=== PATIENT | female | born 1935 | race Caucasian/White ===

== ENCOUNTER 2018-03-17 19:28 | Inpatient (IN) | payer MEDICARE, OTHER ==
[~2018-03-17] VITALS: Ht 160 cm; Wt 66.5 kg
[2018-03-17 20:32] LABS: BASOPHILS % 0.5 % (0.0-1.0); EOSINOPHILS # (AUTO) 0.1 (0.0-0.4); EOSINOPHILS % 1.7 % (0.0-6.0); HEMATOCRIT 34.1 % (34.2-44.1); HEMOGLOBIN 12.2 g/dL (12.0-16.0); LYMPHOCYTES # (AUTO) 1.8 (1.0-3.2); LYMPHOCYTES % 23.1 % (18.0-39.1); MEAN CORPUSCULAR HEMOGLOBIN 31.5 pg (28-32); MEAN CORPUSCULAR HGB CONC 35.8 g/dL (31-35); MEAN CORPUSCULAR VOLUME 88.1 fL (81-99); NEUTROPHILS # (AUTO) 3.9 (2.1-6.9); NEUTROPHILS % 48.9 % (38.7-80.0); RED BLOOD COUNT 3.87 x10e6/uL (3.6-5.1); RED CELL DISTRIBUTION WIDTH 13.1 % (11.7-14.4)
[2018-03-17 20:34] LABS: PLATELET COUNT 23 x10e3/uL (140-360)
[2018-03-17 20:40] LABS: INR 1.05; PROTHROMBIN TIME 12.9 seconds (11.9-14.5)
[2018-03-17 20:41] LABS: PARTIAL THROMBOPLASTIN TIME 29.9 seconds (23.8-35.5)
[2018-03-17 20:47] LABS: ALBUMIN 4.4 g/dL (3.5-5.0); ALBUMIN/GLOBULIN RATIO 1.1 (0.8-2.0); ANION GAP 12.7 mmol/L (8-16); CALCIUM 9.6 mg/dL (8.4-10.2); CREATININE, SERUM 0.89 mg/dL (0.57-1.11); POTASSIUM 3.7 mmol/L (3.5-5.1)
[2018-03-17 20:53] LABS: CREATINE KINASE MB 3.1 ng/mL (0-5.0)
--- NOTE | 2018-03-17 21:03 | Diagnostic Imaging Report ---
EXAMINATION: CHEST 2 VIEWS 03/17/2018 8:11 PM COMPARISON: None INDICATION: Anemia DISCUSSION: LINES: None. LUNGS: Nonspecific bibasilar opacities. PLEURA: No pleural effusion or pneumothorax. HEART AND MEDIASTINUM: Heart size is at the upper limits of normal. Mild ectasia of the thoracic aorta with a through sclerotic calcification. BONES AND SOFT TISSUES: Degenerative changes of the shoulders.. The soft tissues are normal. IMPRESSION: Nonspecific bibasilar opacities may represent infection or atelectasis. Follow-up radiograph may be helpful to determine chronicity. Moi Colon MD Signed by: Dr. Moi Colon M.D. on 03/17/2018 8:59 PM
[2018-03-17 21:24] LABS: HYPOCHROMASIA SLIGHT; LYMPHOCYTES % (MANUAL) 22 % (19-48); MONOCYTES % (MANUAL) 29 % (3.4-9.0); NEUTROPHILS % (MANUAL) 49 % (40-74); PLATELET ESTIMATE MARKEDLY DECREASED; PLATELET MORPHOLOGY COMMENT FEW GIANT; RBC MORPHOLOGY COMMENT NORMAL
[2018-03-17] MEDS ORDERED: SODIUM CHLORIDE FLUSH 10 ML SYR INJ PRN (21:30)
--- NOTE | 2018-03-17 23:32 | Diagnostic Imaging Report ---
EXAM: CT ABDOMEN/PELVIS W DATE: 03/17/2018 9:18 PM INDICATION: Splenomegaly COMPARISON: None TECHNIQUE: The abdomen and pelvis were scanned using a multidetector helical scanner. Coronal and sagittal reformations were obtained. Routine protocol performed. IV Contrast: 100 ml Isovue 300/370 FINDINGS: LOWER THORAX: Cardiomegaly with coronary artery, aortic valve and aortic calcification. Tortuous and/or ectatic incompletely visualized ascending thoracic aorta. Bibasilar nonspecific reticular opacities may reflect fibrotic changes/scarring. Prominent subcarinal and periaortic nodes measuring up to 1 cm short axis. LIVER/BILIARY: No masses. No ductal dilatation. GALLBLADDER: Unremarkable SPLEEN: Unremarkable PANCREAS: Unremarkable ADRENALS: No nodules KIDNEYS: Atrophic right kidney compared to the left. No masses or hydronephrosis. GI TRACT: No wall thickening or evidence of obstruction. Diverticulosis. Normal appendix. VESSELS: Severe atherosclerotic calcifications PERITONEUM/RETROPERITONEUM: No free air or fluid LYMPH NODES: No lymphadenopathy REPRODUCTIVE ORGANS/BLADDER: Hysterectomy. Unremarkable bladder SOFT TISSUES: Unremarkable BONES: Multilevel degenerative changes. Fusion at L4-5. IMPRESSION: No acute abnormality. Signed by: Dr Kay Giang MD on 03/17/2018 11:29 PM
[2018-03-18] VITALS (7 sets, daily range): BP systolic 156–177; BP diastolic 73–90
--- OUTSIDE RECORDS SUMMARY | 2018-03-18 00:32 | XMS REPORT ---
Author [facility] Address Unknown Phone Unavailable Care Team Providers Care Structural Manager Name Role Phone NAEEM BREWER Unavailable Unavailable Problems This patient has no known problems. Allergies, Adverse Reactions, Alerts This patient has no known allergies or adverse reactions. Medications This patient has no known medications. Results Test Description Test Time Test Comments Text Results Atomic Results Result Comments CT ABDOMEN/PELVIS W [place] [address] Patient Name: GEORGIE HOLT MR #: [id number] : 1935 Age/Sex: 82/F Req # : [id number] [facility] Physician: Ordered by: NAEEM BREWER MD Report #: [id number] Location: ER Room/Bed: Procedure: [id number] CT/CT ABDOMEN/PELVIS W Exam Date: 03/17/18 Exam Time: 2230 REPORT STATUS: Signed EXAM: CT ABDOMEN/PELVIS W DATE : 03/17/2018 9:18 PM INDICATION: Splenomegaly COMPARISON: None TECHNIQUE: The abdomen and pelvis were scanned using a multidetector helical scanner. Coronal and sagittal reformations were obtained. Routine protocol performed. IV Contrast: 100 ml Isovue 300/370 FINDINGS: LOWER THORAX: Cardiomegaly with coronary artery, aortic valve and aortic calcification. Tortuous and/or ectatic incompletely visualized ascending thoracic aorta. Bibasilar nonspecific reticular opacities may reflect fibrotic changes/ scarring. Prominent subcarinal and periaortic nodes measuring up to 1 cm short axis. LIVER/BILIARY: No masses. No ductal dilatation. GALLBLADDER: Unremarkable SPLEEN: Unremarkable PANCREAS: Unremarkable ADRENALS: No nodules KIDNEYS: Atrophic right kidney compared to the left. No masses or hydronephrosis. GI TRACT: No wall thickening or evidence of obstruction. Diverticulosis. Normal appendix. VESSELS: Severe atherosclerotic calcifications PERITONEUM/RETROPERITONEUM: No free air or fluid LYMPH NODES: No lymphadenopathy REPRODUCTIVE ORGANS/BLADDER: Hysterectomy. Unremarkable bladder SOFT TISSUES: Unremarkable BONES: Multilevel degenerative changes. Fusion at L4-5. IMPRESSION: No acute abnormality. Signed by: Dr Frannie Giang MD on 03/17/2018 11:29 PM Dictated By: FRANNIE GIANG MD 28 Transcribed By: JNEIFER on 03/17/182328 COPY TO: NAEEM BREWER MD CHEST 2 VIEWS [place] [address] Patient Name: GEORGIE HOLT MR #: [id number] : 1935 Age/Sex: 82/F Req #: [id number] Adm Physician: Ordered by: NAEEM BREWER MD Report #: [id number] Location: ER Room/Bed: Procedure: [id number] DX/CHEST 2 VIEWS Exam Date: 03/17/18 Exam Time: 2029 REPORT STATUS: Signed EXAMINATION: CHEST 2 VIEWS 03/17/2018 8: 11 PM COMPARISON: None INDICATION: Anemia DISCUSSION: LINES: None. LUNGS: Nonspecific bibasilar opacities. PLEURA: No pleural effusion or pneumothorax. HEART AND MEDIASTINUM: Heart size is at the upper limits of normal. Mild ectasia of the thoracic aorta with a through sclerotic calcification. BONES AND SOFT TISSUES: Degenerative changes of the shoulders.. The soft tissues are normal. IMPRESSION: Nonspecific bibasilar opacities may represent infection or atelectasis. Follow-up radiograph may be helpful to determine chronicity. Gabriella Colon MD Signed by: Dr. Gabriella Colon M.D. on 03/17/2018 8:59 PM Dictated By: GABRIELLA COLON MD 58 Transcribed By: JENIFER on 03/17/182058 COPY TO: NAEEM BREWER MD
[2018-03-18] MEDS ORDERED: IOPAMIDOL 370 MG/ML 200 ML INFUS..BTL INJ ONE (02:54)
[2018-03-18] MEDS ORDERED: SODIUM CHLORIDE 0.9% 50ML 50 ML ONE (02:54)
[2018-03-18] MEDS: LOSARTAN POTASSIUM 100 MG TAB PO SCH (09:56)
[2018-03-18 12:20] LABS: BASOPHILS % 0.3 % (0.0-1.0); EOSINOPHILS # (AUTO) 0.1 (0.0-0.4); EOSINOPHILS % 1.8 % (0.0-6.0); HEMATOCRIT 34.7 % (34.2-44.1); HEMOGLOBIN 12.3 g/dL (12.0-16.0); LYMPHOCYTES # (AUTO) 1.7 (1.0-3.2); LYMPHOCYTES % 27.6 % (18.0-39.1); MEAN CORPUSCULAR HEMOGLOBIN 31.3 pg (28-32); MEAN CORPUSCULAR HGB CONC 35.4 g/dL (31-35); MEAN CORPUSCULAR VOLUME 88.3 fL (81-99); MONOCYTES # (AUTO) 1.5 (0.2-0.8); MONOCYTES % 24.4 % (4.4-11.3); NEUTROPHILS # (AUTO) 2.7 (2.1-6.9); NEUTROPHILS % 45.1 % (38.7-80.0); RED BLOOD COUNT 3.93 x10e6/uL (3.6-5.1); RED CELL DISTRIBUTION WIDTH 12.8 % (11.7-14.4)
[2018-03-18 12:23] LABS: PLATELET COUNT 16 x10e3/uL (140-360)
--- NOTE | 2018-03-18 14:40 | History and Physical ---
CHIEF COMPLAINT: Severe thrombocytopenia with porphyria on the leg. HPI: This is an 82-year-old female with past medical history of hypertension, dementia, hyperlipidemia, and mild to moderate thrombocytopenia. She was seen in my office with porphyria and leg rash. Did a blood test. CBC shows platelet count was 22,000. The patient was sent to [facility] ER yesterday. No active bleeding. No hematemesis. No melena. No hematuria. No severe bruise. Has only porphyria rash on the body. No chest pain. No shortness of breath. No cough. No diarrhea. No constipation. No burning urination. No backache. ALLERGIES: NO KNOWN DRUG ALLERGIES. PAST MEDICAL HISTORY 1. Hypertension. 2. Hyperlipidemia. 3. Dementia. 4. Thrombocytopenia. PAST SURGICAL HISTORY 1. History of back surgery. 2. Hysterectomy. SOCIAL HISTORY: The patient is a . Lives with her daughter. HABITS: Denies smoking. Denies alcohol use. MEDICATIONS: List not available. FAMILY HISTORY: Sister has CA of breast. REVIEW OF SYSTEMS : Denies burning on urination. No dysuria. HEENT: No diplopia. No blurring of vision. CARDIOPULMONARY: No chest pain. No shortness of breath. No cough. ALIMENTARY SYSTEM: No nausea or vomiting. MUSCULOSKELETAL: No joint pain. CENTRAL NERVOUS SYSTEM: No focal weakness. DERMATOLOGIC: Bilateral leg skin rash. PHYSICAL EXAMINATION GENERAL: This is an 82-year-old female who is alert and oriented times 3, in no gross distress. VITAL SIGNS: Temperature 97.7, pulse 81, respiratory rate 20, blood pressure 168/87. HEENT: Head is atraumatic and normocephalic. Pupils are bilaterally equally reactive to light. The extraocular movements are intact. NECK: Supple. No JVD. No carotid bruit. LUNGS: Clear to auscultation and percussion bilaterally. No added sound. HEART: S1 and S2. Regular rate and rhythm. No S3, S4 or murmur. ABDOMEN: Soft. Nontender. No guarding. No rigidity. EXTREMITIES: No pedal edema. Peripheral pulses present. VP CLIENT SERVICES: Grossly nonfocal. SKIN: Bilateral lower leg porphyric rash. LABS: CMV normal. CBC: Platelet count was 23,000, hemoglobin 12.2, hematocrit 34.1. PT and PTT are normal. Chest x-ray: Nonspecific basilar opacity may represent infection or atelectasis. CT of the abdomen and pelvis: No acute abnormalities. Fibrotic changes in the lower lungs. CT of the abdomen is normal. ASSESSMENT 1. Severe thrombocytopenia with porphyric rash on the legs. 2. Hypertension. 3. Dementia. 4. Hyperlipidemia. PLAN: CBC today. CBC and BMP in the morning. Follow bleeding precautions. Discussed with nursing care about fall and bleeding precautions. Hematology consult with Dr. Noriega. Continue home medicines Losartan 50 daily and clonidine p.r.n. for hypertension. Case discussed with the patient. Told condition and prognosis. Job#: [id number]
[2018-03-18] MEDS ORDERED: METHYLPREDNISOLONE SOD SUCC 40 MG/ML VIAL IV ONE (16:30)
[2018-03-18] MEDS ORDERED: METHYLPREDNISOLONE SOD SUCC 40 MG/ML VIAL IV SCH ×2 (17:00→22:00)
[2018-03-18] MEDS: CLONIDINE HCL 0.1 MG TAB PO PRN (22:08)
[2018-03-19] VITALS (7 sets, daily range): BP systolic 134–168; BP diastolic 63–73
[2018-03-19] MEDS: METHYLPREDNISOLONE SOD SUCC 40 MG/ML VIAL IV SCH ×3 (01:21→16:46)
[2018-03-19 06:01] LABS: HEMATOCRIT 31.9 % (34.2-44.1); HEMOGLOBIN 11.5 g/dL (12.0-16.0); LYMPHOCYTES # (AUTO) 0.8 (1.0-3.2); LYMPHOCYTES % 17.5 % (18.0-39.1); MEAN CORPUSCULAR HEMOGLOBIN 31.9 pg (28-32); MEAN CORPUSCULAR HGB CONC 36.1 g/dL (31-35); MEAN CORPUSCULAR VOLUME 88.4 fL (81-99); MONOCYTES % 0.9 % (4.4-11.3); NEUTROPHILS # (AUTO) 3.6 (2.1-6.9); NEUTROPHILS % 80.9 % (38.7-80.0); PLATELET COUNT 65 x10e3/uL (140-360); RED BLOOD COUNT 3.61 x10e6/uL (3.6-5.1); RED CELL DISTRIBUTION WIDTH 12.6 % (11.7-14.4)
[2018-03-19 06:24] LABS: ANION GAP 12.9 mmol/L (8-16); BLOOD UREA NITROGEN 21 mg/dL (7-26); BUN/CREATININE RATIO 24 (6-25); CALCIUM 9.3 mg/dL (8.4-10.2); CARBON DIOXIDE 24 mmol/L (22-29); CHLORIDE 105 mmol/L (98-107); CREATININE, SERUM 0.87 mg/dL (0.57-1.11); EST GLOMERULAR FILTRATION RATE > 60 ML/MIN (60-); GLUCOSE 168 mg/dL (74-118); POTASSIUM 3.9 mmol/L (3.5-5.1); SODIUM 138 mmol/L (136-145)
[2018-03-19] MEDS: LOSARTAN POTASSIUM 100 MG TAB PO SCH ×2 (09:29→16:46)
[2018-03-19] MEDS: FAMOTIDINE 20 MG TAB PO SCH (16:46)
[2018-03-20] VITALS: BP 133/56
[2018-03-20] MEDS: METHYLPREDNISOLONE SOD SUCC 40 MG/ML VIAL IV SCH ×3 (02:27→16:32)
[2018-03-20 04:00] VITALS: BP 175/72
[2018-03-20] MEDS: CLONIDINE HCL 0.1 MG TAB PO PRN (04:46)
[2018-03-20 06:15] LABS: BASOPHILS % 0.1 % (0.0-1.0); EOSINOPHILS % 0.1 % (0.0-6.0); HEMATOCRIT 30.9 % (34.2-44.1); HEMOGLOBIN 10.9 g/dL (12.0-16.0); LYMPHOCYTES # (AUTO) 0.9 (1.0-3.2); LYMPHOCYTES % 7.2 % (18.0-39.1); MEAN CORPUSCULAR HEMOGLOBIN 31.5 pg (28-32); MEAN CORPUSCULAR HGB CONC 35.3 g/dL (31-35); MEAN CORPUSCULAR VOLUME 89.3 fL (81-99); MONOCYTES # (AUTO) 1.2 (0.2-0.8); MONOCYTES % 9.6 % (4.4-11.3); NEUTROPHILS # (AUTO) 10.7 (2.1-6.9); PLATELET COUNT 57 x10e3/uL (140-360); RED BLOOD COUNT 3.46 x10e6/uL (3.6-5.1)
[2018-03-20 06:31] LABS: ANION GAP 12.5 mmol/L (8-16); BLOOD UREA NITROGEN 26 mg/dL (7-26); BUN/CREATININE RATIO 32 (6-25); CARBON DIOXIDE 24 mmol/L (22-29); CHLORIDE 109 mmol/L (98-107); CREATININE, SERUM 0.81 mg/dL (0.57-1.11); EST GLOMERULAR FILTRATION RATE > 60 ML/MIN (60-); GLUCOSE 120 mg/dL (74-118); POTASSIUM 3.5 mmol/L (3.5-5.1); SODIUM 142 mmol/L (136-145)
[2018-03-20] MEDS: FAMOTIDINE 20 MG TAB PO SCH ×2 (08:08→16:32)
[2018-03-20 09:00] VITALS: BP 120/56
[2018-03-20] MEDS: LOSARTAN POTASSIUM 100 MG TAB PO SCH ×2 (09:08→16:33)
[2018-03-20] MEDS: AMLODIPINE BESYLATE 5 MG TAB PO SCH (09:08)
[2018-03-20 10:10] VITALS: BP 120/56
--- NOTE | 2018-03-20 10:23 | Diagnostic Imaging Report ---
PROCEDURE:SHOULDER COMPLETE BILATERAL TECHNIQUE:Internal and external rotation AP views both shoulders INDICATION:Bilateral shoulder pain COMPARISON:None. FINDINGS: Bilateral glenohumeral joint space narrowing with marginal osteophytosis. Suspected bilateral intra-articular loose bodies. Regional skeleton intact. CONCLUSION: Severe bilateral shoulder osteoarthritis with intra-articular loose bodies suspected bilaterally. Dictated by: Pedro Millard M.D. on 03/20/2018 at 10:26 Electronically approved by: Pedro Millard M.D. on 03/20/2018 at 10:26
[2018-03-20 16:20] VITALS: BP 131/60
[2018-03-20] MEDS: LACTULOSE SYRUP 20 GM/30 ML UDC PO PRN (16:36)
[2018-03-20 20:00] VITALS: BP 154/60
[2018-03-21] VITALS: BP 138/63
[2018-03-21] MEDS: METHYLPREDNISOLONE SOD SUCC 40 MG/ML VIAL IV SCH ×2 (00:30→09:55)
[2018-03-21 04:00] VITALS: BP 158/59
[2018-03-21 07:39] LABS: EOSINOPHILS % 0.3 % (0.0-6.0); HEMATOCRIT 32.9 % (34.2-44.1); HEMOGLOBIN 11.5 g/dL (12.0-16.0); LYMPHOCYTES # (AUTO) 0.8 (1.0-3.2); LYMPHOCYTES % 8.5 % (18.0-39.1); MEAN CORPUSCULAR HEMOGLOBIN 31.7 pg (28-32); MEAN CORPUSCULAR VOLUME 90.6 fL (81-99); MONOCYTES # (AUTO) 0.2 (0.2-0.8); MONOCYTES % 2.3 % (4.4-11.3); NEUTROPHILS % 87.2 % (38.7-80.0); RED BLOOD COUNT 3.63 x10e6/uL (3.6-5.1); RED CELL DISTRIBUTION WIDTH 12.9 % (11.7-14.4)
[2018-03-21 07:47] LABS: PLATELET COUNT 49 x10e3/uL (140-360)
[2018-03-21 07:57] LABS: ALANINE AMINOTRANSFERASE 19 IU/L (0-55); ALBUMIN 3.8 g/dL (3.5-5.0); ALBUMIN/GLOBULIN RATIO 1.1 (0.8-2.0); ALKALINE PHOSPHATASE 56 IU/L (40-150); ANION GAP 13.9 mmol/L (8-16); BLOOD UREA NITROGEN 27 mg/dL (7-26); BUN/CREATININE RATIO 33 (6-25); CALCIUM 8.8 mg/dL (8.4-10.2); CARBON DIOXIDE 23 mmol/L (22-29); CHLORIDE 105 mmol/L (98-107); CREATININE, SERUM 0.81 mg/dL (0.57-1.11); EST GLOMERULAR FILTRATION RATE > 60 ML/MIN (60-); GLUCOSE 130 mg/dL (74-118); POTASSIUM 3.9 mmol/L (3.5-5.1); SODIUM 138 mmol/L (136-145)
[2018-03-21] MEDS: FAMOTIDINE 20 MG TAB PO SCH (08:00)
[2018-03-21] MEDS: LACTULOSE SYRUP 20 GM/30 ML UDC PO PRN (08:01)
[2018-03-21 09:20] VITALS: BP 149/65
[2018-03-21] MEDS: LOSARTAN POTASSIUM 100 MG TAB PO SCH (09:56)
[2018-03-21] MEDS: AMLODIPINE BESYLATE 5 MG TAB PO SCH (09:57)
--- NOTE | 2018-03-21 11:38 | Consultation ---
DATE OF CONSULTATION: March 18, 2018 CONSULTATION TO: Marcella Lund MD Ms. Dannielle Garcia is an 82-year-old white female who presented to the ER with platelets of 16,000. Subsequently referred to me for further evaluation and treatment. History of having been seen by Dr. Ren Lund in his office. The patient had multiple petechiae over both lower extremities as well as some in the roof of the soft palate. Subsequently referred to me for further evaluation and treatment. HISTORY OF PAST ILLNESS 1. History of hypertension. 2. History of dementia. SOCIAL HISTORY: Noncontributory. FAMILY HISTORY: Noncontributory. ALLERGIES: REPORTED NONE. MEDICATIONS: At this time consist of: 1. Sodium chloride. 2. Losartan. 3. Clonidine. REVIEW OF SYSTEMS HEENT: Normal. CARDIAC: History of hypertension. RESPIRATORY: Normal. GI: Normal. : Normal. MUSCULOSKELETAL: Normal. SKIN AND BREASTS: Normal. NEUROENDOCRINE: Essentially normal. PHYSICAL EXAMINATION GENERAL: Moderately built female, very alert, very cooperate. No palpable adenopathy. HEART: Within normal limits. LUNGS: Clear. BREASTS: Exam deferred at her request. HEENT: Roof of the mouth shows petechiae over the soft palate. No blisters seen over the tongue. ABDOMEN: Soft. There is no hepatosplenomegaly. RECTAL AND VAGINAL: Exams deferred. CENTRAL NERVOUS SYSTEM: Essentially normal. EXTREMITIES: Petechiae up to the knee joint. LABS: Sodium 136, potassium 3.7, chloride 100, CO2 27, BUN 20, creatinine 0.89, glucose 119. Hemoglobin 12.3, hematocrit 34.7, white count of 6200, platelets 16,000. INR 1.05. Bilirubin 1.1, SGOT 24, SGPT 20, alkaline phosphatase 77. IMPRESSION 1. Thrombocytopenia. 2. Hypertension. 3. History of dementia. 4. 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 PLAN, COMMENTS AND SUGGESTIONS: Since I do not have the baseline platelet count on her, since ITP is a little bit uncommon at this age, I presume that this is chronic ITP much more than acute ITP. However, it could still be an acute ITP. I am making the distinction since chronic ITP usually is unresponsive to steroids. However, I would still use steroids in her to keep the platelets above 20,000. I will confine myself to hematology. The patient was started on Solu-Medrol. The platelets have gone up to 49,000. Subsequently will be discharged on prednisone 50 mg a day. I will follow her along with Dr. Ren Lund until the platelets come up 100,000 when I will start weaning her down. Thank you very much for allowing me to participate in the management of this patient. Job#: [id number] cc:REN LUND MD
[2018-03-21 12:31] VITALS: BP 183/78
[2018-03-21] MEDS ORDERED: PREDNISONE20 MG PO (12:57)
== END 2018-03-21 13:09 | disposition home or self-care (01) | DRG 813 ==
LOC: ER 19:28 → ERHOLD 21:19 → MED/SURG2 03-18 00:48
PROVIDERS: ADMIT Internal Medicine; ATTEND Internal Medicine
PROC: 30233R1 Transfusion of Nonautologous Platelets into Peripheral Vein, Percutaneous Approach (ICD-10-PCS; principal; 2018-03-18)
DX: D69.6 Thrombocytopenia, unspecified (principal); E80.20 Unspecified porphyria; I10 Essential (primary) hypertension; F03.90 Unspecified dementia, unspecified severity, without behavioral disturbance, psychotic disturbance, mood disturbance, and anxiety; E78.5 Hyperlipidemia, unspecified
CPT/HCPCS: 36415; 71046; 74177; 80048; 80053; 82550; 82553; 84484; 85025; 85610; 85730; 86850; 86900; 93005; 99284; J2920; P9034; Q9967

== ENCOUNTER 2018-04-06 19:49 | Inpatient (IN) | payer MEDICARE ==
[~2018-04-06] VITALS: Ht 160 cm; Wt 66.2 kg
[~2018-04-06 19:49] MED LIST: PREDNISONE20 MG PO
[2018-04-06] MEDS ORDERED: CLONIDINE HCL 0.1 MG TAB PO ONE (20:30)
[2018-04-06 21:03] LABS: BASOPHILS % 0.2 % (0.0-1.0); EOSINOPHILS % 0.4 % (0.0-6.0); HEMATOCRIT 32.1 % (34.2-44.1); HEMOGLOBIN 11.5 g/dL (12.0-16.0); LYMPHOCYTES # (AUTO) 0.9 (1.0-3.2); LYMPHOCYTES % 8.4 % (18.0-39.1); MEAN CORPUSCULAR HEMOGLOBIN 31.9 pg (28-32); MEAN CORPUSCULAR HGB CONC 35.8 g/dL (31-35); MEAN CORPUSCULAR VOLUME 88.9 fL (81-99); MONOCYTES # (AUTO) 0.4 (0.2-0.8); MONOCYTES % 3.4 % (4.4-11.3); NEUTROPHILS # (AUTO) 8.6 (2.1-6.9); NEUTROPHILS % 82.1 % (38.7-80.0); RED BLOOD COUNT 3.61 x10e6/uL (3.6-5.1); RED CELL DISTRIBUTION WIDTH 13.4 % (11.7-14.4)
[2018-04-06 21:05] LABS: PLATELET COUNT 11 x10e3/uL (140-360)
[2018-04-06 21:10] LABS: INR 1.09; PROTHROMBIN TIME 13.3 seconds (11.9-14.5)
[2018-04-06 21:11] LABS: PARTIAL THROMBOPLASTIN TIME 24.7 seconds (23.8-35.5)
[2018-04-06 21:20] LABS: ALBUMIN 3.8 g/dL (3.5-5.0); ALBUMIN/GLOBULIN RATIO 1.1 (0.8-2.0); ANION GAP 13.6 mmol/L (8-16); CALCIUM 8.8 mg/dL (8.4-10.2); CREATININE, SERUM 1.12 mg/dL (0.57-1.11); POTASSIUM 4.6 mmol/L (3.5-5.1)
[2018-04-06 21:33] LABS: LYMPHOCYTES % (MANUAL) 9 % (19-48); MONOCYTES % (MANUAL) 6 % (3.4-9.0); NEUTROPHILS % (MANUAL) 85 % (40-74)
[2018-04-06 21:34] LABS: HYPOCHROMASIA SLIGHT; PLATELET ESTIMATE MARKEDLY DECREASED; PLATELET MORPHOLOGY COMMENT NORMAL; RBC MORPHOLOGY COMMENT NORMAL
[2018-04-06] MEDS ORDERED: ONDANSETRON HCL INJ 2 MG/ML VIAL IV PRN (21:45)
[2018-04-06] MEDS: METHYLPREDNISOLONE SOD SUCC 125 MG/2ML VIAL IV SCH (22:36)
[2018-04-06] MEDS ORDERED: PANTOPRAZOLE SO40 MG PO (22:48)
[2018-04-06] MEDS ORDERED: LEVOTHYROXINE50 MCG PO (22:48)
[2018-04-06] MEDS ORDERED: LOSARTAN POTASS50 MG PO (22:48)
[2018-04-06] MEDS ORDERED: AMLODIPINE BESY10 MG PO (22:48)
[2018-04-06] MEDS ORDERED: ATORVASTATIN CA40 MG PO (22:48)
[2018-04-06] MEDS: HYDRALAZINE HCL 20 MG/ML VIAL IV PRN (23:08)
[2018-04-07] VITALS (8 sets, daily range): BP systolic 129–201; BP diastolic 58–126
[2018-04-07] MEDS: METHYLPREDNISOLONE SOD SUCC 125 MG/2ML VIAL IV SCH ×4 (03:37→21:20)
[2018-04-07] MEDS ORDERED: CLONIDINE HCL 0.1 MG TAB PO PRN (08:15)
[2018-04-07] MEDS: LOSARTAN POTASSIUM 25 MG TAB PO SCH (08:32)
[2018-04-07] MEDS: AMLODIPINE BESYLATE 10 MG TAB PO SCH (08:32)
[2018-04-07] MEDS: PANTOPRAZOLE SOD 40 MG TABEC PO SCH (08:32)
[2018-04-07] MEDS ORDERED: LEVOTHYROXINE SODIUM 50 MCG TAB PO SCH (09:00)
--- NOTE | 2018-04-07 09:40 | History and Physical ---
CHIEF COMPLAINT: Severe thrombocytopenia and leg rash. HPI: This is an 82-year-old female with a past medical history of thrombocytopenia, hypertension, dementia, hyperlipidemia, was in her usual state of health until few days ago. She came to my office for routine checkup. The CBC count shows the platelet count was 17,000 on 2 occasions. Patient was sent to ER. In the ER, the platelet count had dropped to 11,000. Patient supposed to be on prednisone but was not taking regularly. No hematemesis, no melena, no hematuria. Has some mild purpuric rash on the leg. No abdominal pain, no nausea, no vomiting, no abdominal distention. No headache, no dizziness. No chest pain, no shortness of breath, no cough. PAST MEDICAL HISTORY 1. Hyperlipidemia. 2. Dementia. 3. Hypertension. 4. Thrombocytopenia, possibly from ITP. PAST SURGICAL HISTORY: Back surgery and hysterectomy. HABITS: Denies smoking. Denies alcohol use. SOCIAL HISTORY: The patient is a . Lives with her daughter. MEDICATIONS: List available on the chart. FAMILY HISTORY: Sister has CA of breast. REVIEW OF SYSTEMS HEENT: No diplopia. No blurring of vision. GENERAL: Has some fatigue and weakness. CARDIOPULMONARY: No chest pain. No shortness of breath. ALIMENTARY SYSTEM: No nausea or vomiting. No hematemesis. MUSCULOSKELETAL: Some joint pain. CENTRAL NERVOUS SYSTEM: No focal weakness. No seizure. GENITOURINARY: No dysuria. No hematuria. PHYSICAL EXAMINATION GENERAL: An 82-year-old female who is alert, mild confusion. VITAL SIGNS: Temperature is 96, pulse 61, respiratory rate 18, and blood pressure 158/59. HEENT: Head is atraumatic and normocephalic. Pupils are bilaterally equally reactive to light. Extraocular movements are intact. NECK: Supple. No JVD. No carotid bruit. LUNGS: Clear to auscultation and percussion bilaterally. No added sound. HEART: S1 and S2. Regular rate and rhythm. No S3, S4 or murmur. ABDOMEN: Soft. Nontender. No guarding. No rigidity. EXTREMITIES: No pedal edema. Peripheral pulses +1. TABLE CUT OFF SAW OPERATOR: Grossly nonfocal. SKIN: Bilateral leg skin has some purpuric rash. LABORATORY: White count 10.47, hemoglobin 11.5, hematocrit 32.1, and platelets 11,000. BUN 27, creatinine 1.12, and glucose 168. INR is normal. ASSESSMENT 1. 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 2. Dementia. 3. Hyperlipidemia. 4. Uncontrolled blood pressure. PLAN 1. Admit to medical floor. 2. Hematology consult with Dr. Noriega. 3. Solu-Medrol 60 IV q.6 h. 4. IV fluid normal saline 50 mL per hour. 5. Lab: Hemoglobin A1c, BMP, CBC tomorrow morning. Case discussed with patient. Case discussed with the nursing staff. Told condition and prognosis. Discharge Job#: [id number] CF
[2018-04-07 10:13] LABS: BASOPHILS % 0.2 % (0.0-1.0); EOSINOPHILS % 0.3 % (0.0-6.0); HEMATOCRIT 31.6 % (34.2-44.1); HEMOGLOBIN 11.3 g/dL (12.0-16.0); LYMPHOCYTES % 10.4 % (18.0-39.1); MEAN CORPUSCULAR HEMOGLOBIN 31.8 pg (28-32); MEAN CORPUSCULAR HGB CONC 35.8 g/dL (31-35); MONOCYTES # (AUTO) 0.3 (0.2-0.8); NEUTROPHILS # (AUTO) 7.9 (2.1-6.9); NEUTROPHILS % 81.2 % (38.7-80.0); RED BLOOD COUNT 3.55 x10e6/uL (3.6-5.1); RED CELL DISTRIBUTION WIDTH 13.2 % (11.7-14.4)
[2018-04-07 10:16] LABS: PLATELET COUNT 10 x10e3/uL (140-360)
[2018-04-07 11:38] LABS: BAND NEUTROPHILS % (MANUAL) 1 %; LYMPHOCYTES % (MANUAL) 13 % (19-48); MONOCYTES % (MANUAL) 1 % (3.4-9.0); MYELOCYTES % (MANUAL) 1 % (0-0); NEUTROPHILS % (MANUAL) 84 % (40-74)
[2018-04-07 11:42] LABS: PLATELET ESTIMATE MARKEDLY DECREASED; PLATELET MORPHOLOGY COMMENT NORMAL; RBC MORPHOLOGY COMMENT NORMAL
[2018-04-07] MEDS: DANAZOL 100 MG CAP PO SCH ×3 (12:22→21:20)
[2018-04-07] MEDS: HYDRALAZINE HCL 20 MG/ML VIAL IV PRN (16:10)
[2018-04-07] MEDS: SODIUM CHLORIDE 0.9% 1000ML 1,000 ML IV SCH (18:08)
[2018-04-07] MEDS: MELATONIN 3 MG TAB PO SCH (21:20)
[2018-04-08] VITALS (8 sets, daily range): BP systolic 123–173; BP diastolic 57–74
[2018-04-08] MEDS: METHYLPREDNISOLONE SOD SUCC 125 MG/2ML VIAL IV SCH (05:45)
[2018-04-08] MEDS: HYDRALAZINE HCL 20 MG/ML VIAL IV PRN (05:45)
[2018-04-08] MEDS: LEVOTHYROXINE SODIUM 50 MCG TAB PO SCH (05:45)
[2018-04-08 06:26] LABS: BASOPHILS % 0.2 % (0.0-1.0); EOSINOPHILS % 0.2 % (0.0-6.0); HEMOGLOBIN 11.3 g/dL (12.0-16.0); LYMPHOCYTES # (AUTO) 0.9 (1.0-3.2); LYMPHOCYTES % 7.3 % (18.0-39.1); MEAN CORPUSCULAR HEMOGLOBIN 32.1 pg (28-32); MEAN CORPUSCULAR HGB CONC 36.5 g/dL (31-35); MEAN CORPUSCULAR VOLUME 88.1 fL (81-99); MONOCYTES # (AUTO) 0.6 (0.2-0.8); MONOCYTES % 4.8 % (4.4-11.3); NEUTROPHILS # (AUTO) 10.1 (2.1-6.9); NEUTROPHILS % 83.1 % (38.7-80.0); RED BLOOD COUNT 3.52 x10e6/uL (3.6-5.1); RED CELL DISTRIBUTION WIDTH 13.5 % (11.7-14.4)
[2018-04-08 06:27] LABS: PLATELET COUNT 14 x10e3/uL (140-360)
[2018-04-08 06:45] LABS: CALCIUM 8.7 mg/dL (8.4-10.2); CREATININE, SERUM 1.05 mg/dL (0.57-1.11)
[2018-04-08 06:58] LABS: ANION GAP 13.4 mmol/L (8-16)
[2018-04-08 07:05] LABS: POTASSIUM 3.4 mmol/L (3.5-5.1)
[2018-04-08] MEDS: LOSARTAN POTASSIUM 25 MG TAB PO SCH (08:26)
[2018-04-08] MEDS: AMLODIPINE BESYLATE 10 MG TAB PO SCH (08:26)
[2018-04-08] MEDS: DANAZOL 100 MG CAP PO SCH ×4 (08:26→20:34)
[2018-04-08] MEDS: METHYLPREDNISOLONE SOD SUCC 40 MG/ML VIAL IV SCH ×3 (08:27→20:34)
[2018-04-08] MEDS: PANTOPRAZOLE SOD 40 MG TABEC PO SCH (08:27)
[2018-04-08] MEDS ORDERED: POTASSIUM CHLORIDE 20 MEQ TAB CR PO ONE (15:00)
[2018-04-08] MEDS: SODIUM CHLORIDE 0.9% 1000ML 1,000 ML IV SCH (17:06)
[2018-04-08] MEDS: MELATONIN 3 MG TAB PO SCH (20:34)
[2018-04-09] VITALS (9 sets, daily range): BP systolic 128–146; BP diastolic 61–69
[2018-04-09] MEDS: METHYLPREDNISOLONE SOD SUCC 40 MG/ML VIAL IV SCH ×4 (04:50→21:58)
[2018-04-09] MEDS: LEVOTHYROXINE SODIUM 50 MCG TAB PO SCH (05:40)
[2018-04-09] MEDS: SODIUM CHLORIDE 0.9% 1000ML 1,000 ML IV SCH ×2 (05:40→18:03)
[2018-04-09 07:55] LABS: ALBUMIN 3.2 g/dL (3.5-5.0); ALBUMIN/GLOBULIN RATIO 1.1 (0.8-2.0); ANION GAP 10.7 mmol/L (8-16); CALCIUM 8.3 mg/dL (8.4-10.2); CREATININE, SERUM 0.93 mg/dL (0.57-1.11); POTASSIUM 3.7 mmol/L (3.5-5.1)
[2018-04-09] MEDS: DANAZOL 100 MG CAP PO SCH ×4 (08:38→21:08)
[2018-04-09] MEDS: LOSARTAN POTASSIUM 25 MG TAB PO SCH (08:38)
[2018-04-09] MEDS: PANTOPRAZOLE SOD 40 MG TABEC PO SCH (08:39)
[2018-04-09] MEDS: AMLODIPINE BESYLATE 10 MG TAB PO SCH (08:39)
[2018-04-09] MEDS: MELATONIN 3 MG TAB PO SCH (21:08)
[2018-04-09] MEDS: MIRTAZAPINE 15 MG TAB PO SCH (21:09)
[2018-04-10] VITALS (7 sets, daily range): BP systolic 128–162; BP diastolic 60–78
[2018-04-10] MEDS: SODIUM CHLORIDE 0.9% 1000ML 1,000 ML IV SCH (05:06)
[2018-04-10] MEDS: LEVOTHYROXINE SODIUM 50 MCG TAB PO SCH (05:06)
[2018-04-10] MEDS: METHYLPREDNISOLONE SOD SUCC 40 MG/ML VIAL IV SCH ×3 (05:06→15:53)
[2018-04-10 06:23] LABS: BASOPHILS % 0.4 % (0.0-1.0); EOSINOPHILS % 0.3 % (0.0-6.0); HEMATOCRIT 31.8 % (34.2-44.1); HEMOGLOBIN 11.3 g/dL (12.0-16.0); LYMPHOCYTES # (AUTO) 0.5 (1.0-3.2); LYMPHOCYTES % 4.7 % (18.0-39.1); MEAN CORPUSCULAR HEMOGLOBIN 31.8 pg (28-32); MEAN CORPUSCULAR HGB CONC 35.5 g/dL (31-35); MEAN CORPUSCULAR VOLUME 89.6 fL (81-99); MONOCYTES # (AUTO) 0.8 (0.2-0.8); MONOCYTES % 6.7 % (4.4-11.3); NEUTROPHILS # (AUTO) 9.2 (2.1-6.9); NEUTROPHILS % 81.8 % (38.7-80.0); RED BLOOD COUNT 3.55 x10e6/uL (3.6-5.1); RED CELL DISTRIBUTION WIDTH 13.5 % (11.7-14.4)
[2018-04-10 06:32] LABS: PLATELET COUNT 7 x10e3/uL (140-360)
[2018-04-10 06:42] LABS: ANION GAP 9.9 mmol/L (8-16); CREATININE, SERUM 0.93 mg/dL (0.57-1.11); POTASSIUM 3.9 mmol/L (3.5-5.1)
[2018-04-10 07:12] LABS: LYMPHOCYTES % (MANUAL) 15 % (19-48); METAMYELOCYTES % (MANUAL) 1 % (0-0); MONOCYTES % (MANUAL) 2 % (3.4-9.0); NEUTROPHILS % (MANUAL) 82 % (40-74)
[2018-04-10 07:13] LABS: ANISOCYTOSIS SLIGHT; PLATELET ESTIMATE MARKEDLY DECREASED; RBC MORPHOLOGY COMMENT ABNORMAL
[2018-04-10 07:14] LABS: PLATELET MORPHOLOGY COMMENT FEW LARGE
[2018-04-10] MEDS: AMLODIPINE BESYLATE 10 MG TAB PO SCH (08:50)
[2018-04-10] MEDS: LOSARTAN POTASSIUM 25 MG TAB PO SCH (08:50)
[2018-04-10] MEDS: DANAZOL 100 MG CAP PO SCH ×4 (08:50→21:14)
[2018-04-10] MEDS: PANTOPRAZOLE SOD 40 MG TABEC PO SCH (08:50)
[2018-04-10] MEDS ORDERED: IMMUNE GLOBULIN 10%,10GM/100ML 300 ML IV SCH (19:30)
[2018-04-10] MEDS: MIRTAZAPINE 15 MG TAB PO SCH (21:14)
[2018-04-10] MEDS: MELATONIN 3 MG TAB PO SCH (21:14)
[2018-04-10] MEDS ORDERED: IMMUNE GLOBULIN IV SCH (21:30)
[2018-04-10] MEDS ORDERED: IMMU GLOBULIN,GAMMA (IGG) 200 ML IV SCH (21:30)
[2018-04-11] VITALS (9 sets, daily range): BP systolic 136–175; BP diastolic 61–78
[2018-04-11] MEDS: SODIUM CHLORIDE 0.9% 1000ML 1,000 ML IV SCH ×2 (04:13→09:41)
[2018-04-11] MEDS: LEVOTHYROXINE SODIUM 50 MCG TAB PO SCH (05:17)
[2018-04-11] MEDS ORDERED: IMMUNE GLOBULIN IV SCH (05:30)
[2018-04-11 06:15] LABS: BASOPHILS % 0.3 % (0.0-1.0); EOSINOPHILS % 0.2 % (0.0-6.0); HEMATOCRIT 31.7 % (34.2-44.1); HEMOGLOBIN 11.2 g/dL (12.0-16.0); LYMPHOCYTES # (AUTO) 0.5 (1.0-3.2); LYMPHOCYTES % 4.6 % (18.0-39.1); MEAN CORPUSCULAR HEMOGLOBIN 31.8 pg (28-32); MEAN CORPUSCULAR HGB CONC 35.3 g/dL (31-35); MEAN CORPUSCULAR VOLUME 90.1 fL (81-99); MONOCYTES # (AUTO) 1.3 (0.2-0.8); MONOCYTES % 11.5 % (4.4-11.3); NEUTROPHILS # (AUTO) 8.7 (2.1-6.9); NEUTROPHILS % 77.6 % (38.7-80.0); RED BLOOD COUNT 3.52 x10e6/uL (3.6-5.1); RED CELL DISTRIBUTION WIDTH 13.4 % (11.7-14.4)
[2018-04-11 06:25] LABS: PLATELET COUNT 14 x10e3/uL (140-360)
[2018-04-11 06:32] LABS: CREATININE, SERUM 1.07 mg/dL (0.57-1.11)
[2018-04-11 07:54] LABS: ANISOCYTOSIS SLIGHT; BAND NEUTROPHILS % (MANUAL) 3 %; LYMPHOCYTES % (MANUAL) 4 % (19-48); METAMYELOCYTES % (MANUAL) 1 % (0-0); MONOCYTES % (MANUAL) 9 % (3.4-9.0); MYELOCYTES % (MANUAL) 3 % (0-0); NEUTROPHILS % (MANUAL) 78 % (40-74); PLATELET ESTIMATE MARKEDLY DECREASED; PLATELET MORPHOLOGY COMMENT NORMAL; RBC MORPHOLOGY COMMENT NORMAL
[2018-04-11] MEDS ORDERED: PREDNISONE 20 MG TAB PO SCH (09:00)
[2018-04-11] MEDS: PANTOPRAZOLE SOD 40 MG TABEC PO SCH (09:42)
[2018-04-11] MEDS: LOSARTAN POTASSIUM 25 MG TAB PO SCH (09:42)
[2018-04-11] MEDS: AMLODIPINE BESYLATE 10 MG TAB PO SCH (09:42)
[2018-04-11] MEDS: PREDNISONE 20 MG TAB PO SCH (09:42)
[2018-04-11] MEDS: DANAZOL 100 MG CAP PO SCH ×4 (09:42→21:00)
[2018-04-11] MEDS: MELATONIN 3 MG TAB PO SCH (21:00)
[2018-04-11] MEDS ORDERED: IMMUNE GLOBULIN 10%,10GM/100ML 300 ML IV SCH (21:30)
[2018-04-11] MEDS: MIRTAZAPINE 15 MG TAB PO SCH (22:02)
[2018-04-12 00:09] VITALS: BP 134/62
[2018-04-12 03:11] VITALS: BP 134/62
[2018-04-12 04:00] VITALS: BP 144/65
[2018-04-12] MEDS: LEVOTHYROXINE SODIUM 50 MCG TAB PO SCH (06:03)
[2018-04-12] MEDS: SODIUM CHLORIDE 0.9% 1000ML 1,000 ML IV SCH (06:04)
[2018-04-12 06:33] LABS: BASOPHILS % 0.4 % (0.0-1.0); EOSINOPHILS % 0.1 % (0.0-6.0); HEMATOCRIT 32.5 % (34.2-44.1); HEMOGLOBIN 11.2 g/dL (12.0-16.0); LYMPHOCYTES # (AUTO) 0.4 (1.0-3.2); LYMPHOCYTES % 4.4 % (18.0-39.1); MEAN CORPUSCULAR HEMOGLOBIN 31.4 pg (28-32); MEAN CORPUSCULAR HGB CONC 34.5 g/dL (31-35); MONOCYTES # (AUTO) 1.9 (0.2-0.8); MONOCYTES % 20.3 % (4.4-11.3); NEUTROPHILS # (AUTO) 6.6 (2.1-6.9); NEUTROPHILS % 69.7 % (38.7-80.0); RED BLOOD COUNT 3.57 x10e6/uL (3.6-5.1); RED CELL DISTRIBUTION WIDTH 13.3 % (11.7-14.4)
[2018-04-12 06:41] LABS: PLATELET COUNT 27 x10e3/uL (140-360)
[2018-04-12 06:50] LABS: ALBUMIN 2.7 g/dL (3.5-5.0); ALBUMIN/GLOBULIN RATIO 0.7 (0.8-2.0); CALCIUM 7.9 mg/dL (8.4-10.2); CREATININE, SERUM 0.98 mg/dL (0.57-1.11)
[2018-04-12 08:05] VITALS: BP 188/75
[2018-04-12 08:15] VITALS: BP 188/75
[2018-04-12] MEDS: LOSARTAN POTASSIUM 25 MG TAB PO SCH (08:17)
[2018-04-12] MEDS: DANAZOL 100 MG CAP PO SCH ×2 (08:17→13:00)
[2018-04-12] MEDS: AMLODIPINE BESYLATE 10 MG TAB PO SCH (08:18)
[2018-04-12] MEDS: PANTOPRAZOLE SOD 40 MG TABEC PO SCH (08:18)
[2018-04-12] MEDS: PREDNISONE 20 MG TAB PO SCH (08:18)
[2018-04-12 08:28] LABS: BAND NEUTROPHILS % (MANUAL) 4 %; LYMPHOCYTES % (MANUAL) 10 % (19-48); MONOCYTES % (MANUAL) 17 % (3.4-9.0); MYELOCYTES % (MANUAL) 1 % (0-0); NEUTROPHILS % (MANUAL) 67 % (40-74)
[2018-04-12 08:29] LABS: PLATELET ESTIMATE MARKEDLY DECREASED; PLATELET MORPHOLOGY COMMENT MODERATE LARGE
[2018-04-12 08:30] LABS: ANISOCYTOSIS SLIGHT; RBC MORPHOLOGY COMMENT NORMAL
--- NOTE | 2018-04-12 10:22 | Consultation ---
DATE OF CONSULTATION: April 07, 2018 Dannielle Garcia is an 82-year-old white female who presented to the ER with a platelet count of 11,000 and subsequently referred to me for further evaluation and treatment. HISTORY OF PAST ILLNESSES: History of ITP. This is the 2nd admission. The patient was discharged on prednisone. Something went wrong. The prednisone was not given by the pharmacy. Subsequently, the patient claims that she went to a trench digger helper, but the sister did not like the trench digger helper. Subsequently, there was no followup. Subsequently, lands in the ER. SOCIAL HISTORY: Noncontributory. FAMILY HISTORY: Noncontributory. ALLERGIES: REPORTED NONE. MEDICATIONS: At this time, ondansetron, methylprednisolone, hydralazine, amlodipine, clonidine, losartan, Synthroid. REVIEW OF SYSTEMS HEENT: Normal. CARDIAC: History of hypertension. RESPIRATORY: Normal. GI: Normal. : Normal. MUSCULOSKELETAL: Normal. SKIN AND BREASTS: Normal. NEUROENDOCRINE: History of hypothyroidism. PHYSICAL EXAMINATION GENERAL: A moderately built female with no palpable adenopathy. HEART: Within normal limits. LUNGS: Clear. ABDOMEN: Obese. There is no hepatosplenomegaly. RECTAL: Deferred. CENTRAL NERVOUS SYSTEM: Essentially normal. EXTREMITIES: Petechiae over both lower extremities. LABS: Shows a sodium of 137, potassium 4.6, chloride 74, CO2 24, BUN 27, creatinine 1.12. Hemoglobin of 11.5, white count 10,400, platelets of 11,000, hematocrit 32.1. INR 1.09. Bilirubin 0.6, SGOT 24, SGPT 39, alkaline phosphatase 70. IMPRESSION 1. Idiopathic thrombocytopenic purpura. 2. Hypertension. 2. Hypothyroidism. PLAN: Reinstitute steroids. Add Danocrin. Unfortunately, I am not on her insurance plan. I communicated with Dr. Ren Lund to obtain a trench digger helper for followup on her insurance plan. Thank you very much for allowing me to participate in the management of this patient. At the time of this dictation, the patient had to be given IV Ig. The patient is presently on 60 mg of prednisone and 200 mg 4 times a day of Danocrin. The platelets have come up to 27,000 with which she is very stable. Could be discharged on prednisone 60 mg and Danocrin 800 mg a day. Will follow up with a trench digger helper. Job#: [id number] RI cc:REN LUND MD
[2018-04-12 12:29] VITALS: BP 162/70
[2018-04-12] MEDS ORDERED: DANAZOL200 MG PO (14:22)
== END 2018-04-12 15:00 | disposition home or self-care (01) | DRG 813 ==
LOC: ER 19:49 → ERHOLD 21:38 → MED/SURG3 22:46 → OBSVTOIN 04-07 16:16
PROVIDERS: ADMIT Internal Medicine; ATTEND Internal Medicine
DX: D69.3 Immune thrombocytopenic purpura (principal); I10 Essential (primary) hypertension; D50.0 Iron deficiency anemia secondary to blood loss (chronic); F03.90 Unspecified dementia, unspecified severity, without behavioral disturbance, psychotic disturbance, mood disturbance, and anxiety; E78.5 Hyperlipidemia, unspecified; E03.9 Hypothyroidism, unspecified; E86.0 Dehydration
CPT/HCPCS: 36415; 80048; 80053; 83036; 85025; 85610; 85730; 96361; 99284; G0378; J0360; J1561; J2920; J2930; J7030

== ENCOUNTER 2018-06-06 10:53 | Inpatient (IN) | payer MEDICARE ==
[~2018-06-06] VITALS: Ht 160 cm; Wt 66.2 kg
[~2018-06-06 10:53] MED LIST changes: +AMLODIPINE BESY10 MG PO; +ATORVASTATIN CA40 MG PO; +DANAZOL200 MG PO; +LEVOTHYROXINE50 MCG PO; +LOSARTAN POTASS50 MG PO; +PANTOPRAZOLE SO40 MG PO
[2018-06-06] MEDS ORDERED: SODIUM CHLORIDE 0.9% 250ML 250 ML IV ONE (11:30)
[2018-06-06 11:35] LABS: BASOPHILS % 0.1 % (0.0-1.0); EOSINOPHILS # (AUTO) 0.1 (0.0-0.4); EOSINOPHILS % 0.9 % (0.0-6.0); HEMATOCRIT 27.1 % (34.2-44.1); LYMPHOCYTES # (AUTO) 1.2 (1.0-3.2); LYMPHOCYTES % 9.2 % (18.0-39.1); MEAN CORPUSCULAR HEMOGLOBIN 32.3 pg (28-32); MEAN CORPUSCULAR HGB CONC 33.2 g/dL (31-35); MEAN CORPUSCULAR VOLUME 97.1 fL (81-99); MONOCYTES # (AUTO) 4.4 (0.2-0.8); MONOCYTES % 32.7 % (4.4-11.3); NEUTROPHILS # (AUTO) 7.5 (2.1-6.9); NEUTROPHILS % 54.9 % (38.7-80.0); PLATELET COUNT 191 x10e3/uL (140-360); RED BLOOD COUNT 2.79 x10e6/uL (3.6-5.1); RED CELL DISTRIBUTION WIDTH 17.1 % (11.7-14.4)
[2018-06-06 11:45] LABS: INR 1.23; PROTHROMBIN TIME 14.6 seconds (11.9-14.5)
[2018-06-06 11:46] LABS: PARTIAL THROMBOPLASTIN TIME 27.7 seconds (23.8-35.5)
[2018-06-06 11:52] LABS: ALANINE AMINOTRANSFERASE 18 IU/L (0-55); ALBUMIN 2.6 g/dL (3.5-5.0); ALBUMIN/GLOBULIN RATIO 0.8 (0.8-2.0); ALKALINE PHOSPHATASE 39 IU/L (40-150); BLOOD UREA NITROGEN 21 mg/dL (7-26); BUN/CREATININE RATIO 25 (6-25); CALCIUM 8.4 mg/dL (8.4-10.2); CARBON DIOXIDE 22 mmol/L (22-29); CHLORIDE 109 mmol/L (98-107); CREATINE KINASE 35 IU/L (29-168); CREATININE, SERUM 0.85 mg/dL (0.57-1.11); EST GLOMERULAR FILTRATION RATE > 60 ML/MIN (60-); GLUCOSE 90 mg/dL (74-118); SODIUM 142 mmol/L (136-145)
[2018-06-06 11:57] LABS: B-TYPE NATRIURETIC PEPTIDE2 693.8 pg/mL (0-100)
[2018-06-06] MEDS ORDERED: FUROSEMIDE INJ 10 MG/ML 4 ML VIAL IV ONE (12:00)
--- NOTE | 2018-06-06 12:04 | Diagnostic Imaging Report ---
Examination: Single AP view of the chest. COMPARISON: CT abdomen and pelvis 03/17/2018. Chest 2 views 03/17/2018 INDICATION: Shortness of breath IMPRESSION: 1. Lines and Tubes: None 2. Lungs are well-inflated. Stable 3 mm nodular density projected within the posterior aspect of the right sixth and seventh ribs. Diffuse interstitial opacities extending from bilateral monica consistent with interstitial edema/fluid overload. No definite consolidation. 3. Cardiomediastinal silhouette is normal. Central pulmonary venous congestion. Calcified thoracic aorta. 4. No acute bony abnormalities. Signed by: Dr. Raúl Cantor M.D. on 06/06/2018 12:01 PM
[2018-06-06] MEDS ORDERED: FUROSEMIDE INJ 10 MG/ML 4 ML VIAL ONE (12:53)
[2018-06-06 13:17] LABS: BILIRUBIN,URINE NEGATIVE (NEGATIVE); CLARITY,URINE CLEAR (CLEAR); COLOR,URINE YELLOW (YELLOW); KETONES,URINE NEGATIVE (NEGATIVE); LEUKOCYTE ESTERASE ,URINE NEGATIVE (NEGATIVE); NITRITE,URINE NEGATIVE (NEGATIVE); PROTEIN,URINE DIPSTICK 2+ (NEGATIVE); URINE UROBILINOGEN 1 mg/dL (0.2 - 1)
[2018-06-06 13:27] LABS: BACTERIA,URINE FEW /HPF; EPITHELIAL CELLS,URINE RARE /LPF; WBC,URINE (MAN) 0-5 /HPF (0-5)
[2018-06-06] MEDS ORDERED: POTASSIUM CHLORIDE 10MEQ/100ML 10 MEQ in POTASSIUM CHLORIDE 10MEQ/100ML 100 ML IV ONE (15:05)
[2018-06-06] MEDS ORDERED: SODIUM CHLORIDE FLUSH 10 ML SYR INJ PRN (15:15)
[2018-06-06] MEDS: POTASSIUM CHLORIDE 10MEQ/100ML 100 ML IV SCH ×4 (16:00→23:48)
[2018-06-06] MEDS ORDERED: FUROSEMIDE INJ 10 MG/ML 4 ML VIAL IV SCH ×2 (17:00→21:45)
[2018-06-06] MEDS: PANTOPRAZOLE 40 MG 10ML VIAL IV SCH (17:37)
[2018-06-06 18:47] LABS: ANION GAP 19.3 mmol/L (8-16); CALCIUM 8.4 mg/dL (8.4-10.2); CREATININE, SERUM 1.11 mg/dL (0.57-1.11); POTASSIUM 3.3 mmol/L (3.5-5.1)
[2018-06-06 19:53] LABS: CREATINE KINASE MB 2.4 ng/mL (0-5.0)
[2018-06-06 21:50] VITALS: BP 128/69
[2018-06-06 22:00] VITALS: BP 128/69
[2018-06-06] MEDS ORDERED: SODIUM CHLORIDE 0.9% 250ML 250 ML ONE (22:06)
--- NOTE | 2018-06-06 22:50 | History and Physical ---
CHIEF COMPLAINT 1. Shortness of breath. 2. Cough. 3. Weakness. HPI: This is an 82-year-old female with past medical history of idiopathic thrombocytopenic purpura, dementia, hypertension, hypothyroidism, was in her usual state of health until 5-7 days ago, when she started developing some increasing shortness of breath, leg swelling. No nausea, no vomiting. Mild cough. No diarrhea, no abdominal pain, no constipation, no burning urination, no dysuria. No back pain, no seizures, no focal weakness. PAST MEDICAL HISTORY 1. Dementia. 2. Hyperlipidemia. 3. Hypertension. 4. Hypothyroidism. 5. Idiopathic thrombocytopenic purpura. PAST SURGICAL HISTORY: Back surgery and hysterectomy. SOCIAL HISTORY: Denies smoking, denies alcohol use, denies illicit drug use. MEDICATIONS: List attached. FAMILY HISTORY: Sister has CA of breast. SOCIAL HISTORY: Patient is . Lives with her daughter. REVIEW OF SYSTEMS GENERAL: Denies fatigue and weakness. HEENT: No diplopia. No blurring of vision. CARDIOPULMONARY: No chest pain. Has some shortness of breath and cough. ALIMENTARY SYSTEM: No nausea, no vomiting. GENITOURINARY: Denies dysuria or hematuria. MUSCULOSKELETAL: Mild joint pain. CENTRAL NERVOUS SYSTEM: No focal weakness, no seizure. PHYSICAL EXAM GENERAL: An 82-year-old female, who is alert, oriented times 1. VITAL SIGNS: Temperature 98.2, pulse 82, respiratory rate 18, blood pressure 110/74. HEENT: Atraumatic and normocephalic. Pupils are bilaterally equal to light. Extraocular movements are intact. NECK: Supple. No JVD, no carotid bruit. LUNGS: Air entry fair. Few rhonchi and wheezing bilaterally. HEART: S1 and S2. Regular rate and rhythm. No S3, S4 or murmur. ABDOMEN: Soft, nontender. No guarding, no rigidity. EXTREMITIES: +1 pedal edema. Peripheral pulses +1. LABORER CARPENTRY DOCK: Grossly nonfocal. ASSESSMENT 1. Acute new heart failure, possible systolic. Rule out myocardial infarction. 2. Increased white count, possible pneumonia versus steroid. 3. Hypertension. 4. Atherosclerotic heart disease. 5. Dementia. 6. Rectal bleeding, rule out gastrointestinal bleeding. 7. Hypothyroidism. PLAN 1. Admit to telemetry. 2. GI consult, Dr. Medina. 3. Cardiology consult, Dr. Albert. 4. Hematology consult, Dr. Downing. 5. Lasix 40 IV b.i.d. 6. KCl 20 p.o. b.i.d. 7. Levaquin 500 IV daily. 8. Continue prednisone 10 mg daily. 9. Continue all other home medicine. 10. Condition and prognosis explained to the patient and family. 11. Condition guarded. Job#: [id number] CQ
[2018-06-06] MEDS: LEVOFLOXACIN 500MG/D5W 100ML 100 ML IV SCH (22:55)
[2018-06-06 23:03] VITALS: BP 128/69
[2018-06-07] VITALS (7 sets, daily range): BP systolic 108–126; BP diastolic 40–73
[2018-06-07] MEDS: POTASSIUM CHLORIDE 10MEQ/100ML 100 ML IV SCH
[2018-06-07] MEDS: FUROSEMIDE INJ 10 MG/ML 4 ML VIAL IV SCH ×2 (00:47→13:43)
[2018-06-07] MEDS: ACETAMINOPHEN 325 MG TAB PO PRN ×2 (00:47→12:59)
[2018-06-07] MEDS ORDERED: POTASSIUM CHLORIDE 20 MEQ TAB CR PO STA (01:07)
[2018-06-07 02:50] LABS: CREATINE KINASE MB 1.8 ng/mL (0-5.0)
[2018-06-07 04:47] LABS: BASOPHILS % 0.2 % (0.0-1.0); EOSINOPHILS # (AUTO) 0.1 (0.0-0.4); EOSINOPHILS % 0.5 % (0.0-6.0); HEMOGLOBIN 8.6 g/dL (12.0-16.0); LYMPHOCYTES # (AUTO) 1.3 (1.0-3.2); LYMPHOCYTES % 10.8 % (18.0-39.1); MEAN CORPUSCULAR HEMOGLOBIN 31.7 pg (28-32); MEAN CORPUSCULAR HGB CONC 33.1 g/dL (31-35); MEAN CORPUSCULAR VOLUME 95.9 fL (81-99); MONOCYTES # (AUTO) 4.6 (0.2-0.8); MONOCYTES % 37.5 % (4.4-11.3); NEUTROPHILS # (AUTO) 6.1 (2.1-6.9); NEUTROPHILS % 49.1 % (38.7-80.0); PLATELET COUNT 175 x10e3/uL (140-360); RED BLOOD COUNT 2.71 x10e6/uL (3.6-5.1)
[2018-06-07 05:09] LABS: ANION GAP 18.1 mmol/L (8-16); CALCIUM 8.2 mg/dL (8.4-10.2); CREATININE, SERUM 1.17 mg/dL (0.57-1.11); POTASSIUM 3.1 mmol/L (3.5-5.1)
[2018-06-07] MEDS: LEVOTHYROXINE SODIUM 50 MCG TAB PO SCH (05:24)
--- NOTE | 2018-06-07 06:08 | Diagnostic Imaging Report ---
CHEST SINGLE (PORTABLE), 06/07/2018 7:00 AM Technique: CHEST SINGLE (PORTABLE) Comparison: Previous day Clinical history: Congestive heart failure. Findings: See Impression Impression: 1. Stable cardiomediastinal silhouette. Aortic calcifications. 2. Diffuse opacities, increased from prior, likely due to edema. 3. Small effusions. Signed by: Dr Kay Giang MD on 06/07/2018 6:04 AM
[2018-06-07 06:58] LABS: HYPOCHROMASIA MODERATE; LYMPHOCYTES % (MANUAL) 3 % (19-48); METAMYELOCYTES % (MANUAL) 1 % (0-0); MONOCYTES % (MANUAL) 25 % (3.4-9.0); MYELOCYTES % (MANUAL) 1 % (0-0); NEUTROPHILS % (MANUAL) 70 % (40-74)
[2018-06-07 06:59] LABS: ANISOCYTOSIS SLIG; PLATELET MORPHOLOGY COMMENT FEW LARGE; POLYCHROMASIA FEW; RBC MORPHOLOGY COMMENT NORMAL
--- NOTE | 2018-06-07 08:58 | Consultation ---
DATE OF CONSULTATION: June 06, 2018 CONSULTING PHYSICIAN: Dr. Vera River REASON FOR CONSULTATION: CHF and elevated troponin. HPI: This is an 82-year-old female that presented with difficulty with breathing. She started having increased shortness of breath with walking times 3 weeks. She also complained of bloody diarrhea times 2 to 3 weeks. She was sent over by the home health nurse due to low oxygen saturation. She has a history of thrombocytopenia and dementia. She denied any chest pain, any palpitations, any dizziness, or diaphoresis. Troponin was positive. EKG showed no ST abnormalities. BNP 693. PAST MEDICAL HISTORY: COPD, dementia, hyperlipidemia, hypertension, hypothyroidism, and thrombocytopenia. PAST SURGICAL HISTORY: Back surgery and hysterectomy. FAMILY HISTORY: Sister has history of breast cancer. SOCIAL HISTORY: No smoking, no drinking. MEDICATIONS: See med list. ALLERGIES: SHE IS NOT ALLERGIC TO ANY MEDICATION. REVIEW OF THE SYSTEMS: Negative except those mentioned above. PHYSICAL EXAMINATION: VITAL SIGNS: Temperature 98, heart rate 84, blood pressure 112/57, respiration 18, oxygen saturation 94% on 2 liters nasal cannula. GENERAL: She is awake, alert, and intermittently confused. HEENT: Mucous membranes moist. NECK: Supple. LUNGS: Bilaterally clear to auscultation. CARDIOVASCULAR: S1 and S2 present. ABDOMEN: Soft. NEUROLOGICAL: She is able to move upper and lower extremities. EXTREMITIES: Bilateral lower extremities with no edema. LABS: Sodium 142, potassium 3.1, chloride 104, CO2 23, BUN 21, creatinine 1.17, glucose 75. White blood cell 12.3, hemoglobin 8.6, hematocrit 26.0, platelet 175,000. PT 14.6, PTT 27.7, INR 1.23. IMPRESSION: 1. Congestive heart failure. 2. Non-ST elevation myocardial infarction. 3. Anemia. 4. Hypertension. 5. Hypothyroidism. 6. Thrombocytopenia. 7. History of dementia. 8. Hypokalemia. 9. History of bloody diarrhea. ASSESSMENT AND PLAN: Will go ahead and continue diuresis. Get an echocardiogram to assess the LV and the valve function. She has no complaint of chest pain. Troponin was elevated, but she refused any cardiac procedure. Will go ahead and continue statin and beta colleen. Due to the GI bleed possible, will go ahead and hold off on aspirin and Plavix. Potassium has been replaced. Further cardiac workup pending clinical course. Thank you for this consultation. Dictated by: Miriam Ledezma NP Job#: [id number]
[2018-06-07] MEDS ORDERED: PREDNISONE 20 MG TAB PO SCH (09:00)
[2018-06-07] MEDS ORDERED: NON-FORMULARY MEDICATION (Losartan Potassium 100 MG) PO SCH (09:00)
[2018-06-07] MEDS ORDERED: NON-FORMULARY MEDICATION (Atorvastatin Calcium 40 MG) PO SCH (09:00)
[2018-06-07] MEDS ORDERED: DANAZOL 200 MG PO SCH (09:00)
[2018-06-07] MEDS: PANTOPRAZOLE 40 MG 10ML VIAL IV SCH ×2 (09:01→17:38)
[2018-06-07] MEDS: POTASSIUM CHLORIDE 20 MEQ TAB CR PO SCH ×2 (09:01→17:37)
[2018-06-07] MEDS: AMLODIPINE BESYLATE 10 MG TAB PO SCH (09:02)
[2018-06-07] MEDS: DANAZOL 100 MG CAP PO SCH (09:02)
[2018-06-07] MEDS: PREDNISONE 10 MG TAB PO SCH (09:02)
[2018-06-07] MEDS: LOSARTAN POTASSIUM 100 MG TAB PO SCH (09:03)
[2018-06-07] MEDS ORDERED: ACETAMINOPHEN 325 MG TAB PO PRN (15:30)
[2018-06-07] MEDS ORDERED: POTASSIUM CHLORIDE 10 MEQ TABCR PO ONE (15:40)
[2018-06-07] MEDS: LEVOFLOXACIN 500MG/D5W 100ML 100 ML IV SCH (17:37)
[2018-06-07] MEDS: ATORVASTATIN 40 MG TAB PO SCH (20:52)
[2018-06-08] MEDS: FUROSEMIDE INJ 10 MG/ML 4 ML VIAL IV SCH ×2 (01:52→13:59)
[2018-06-08 04:35] VITALS: BP 127/52
[2018-06-08] MEDS: LEVOTHYROXINE SODIUM 50 MCG TAB PO SCH (05:18)
[2018-06-08 05:53] LABS: INR 1.31; PROTHROMBIN TIME 15.3 seconds (11.9-14.5)
[2018-06-08 05:54] LABS: PARTIAL THROMBOPLASTIN TIME 31.5 seconds (23.8-35.5)
[2018-06-08 05:56] LABS: BASOPHILS % 0.2 % (0.0-1.0); EOSINOPHILS % 0.1 % (0.0-6.0); HEMATOCRIT 25.8 % (34.2-44.1); HEMOGLOBIN 8.5 g/dL (12.0-16.0); LYMPHOCYTES # (AUTO) 1.4 (1.0-3.2); LYMPHOCYTES % 10.7 % (18.0-39.1); MEAN CORPUSCULAR HEMOGLOBIN 31.8 pg (28-32); MEAN CORPUSCULAR HGB CONC 32.9 g/dL (31-35); MEAN CORPUSCULAR VOLUME 96.6 fL (81-99); MONOCYTES % 30.9 % (4.4-11.3); NEUTROPHILS # (AUTO) 7.2 (2.1-6.9); PLATELET COUNT 194 x10e3/uL (140-360); RED BLOOD COUNT 2.67 x10e6/uL (3.6-5.1); RED CELL DISTRIBUTION WIDTH 17.3 % (11.7-14.4)
[2018-06-08 06:21] LABS: ALBUMIN 2.5 g/dL (3.5-5.0); ALBUMIN/GLOBULIN RATIO 0.7 (0.8-2.0); CALCIUM 8.6 mg/dL (8.4-10.2); CREATININE, SERUM 1.24 mg/dL (0.57-1.11)
[2018-06-08 07:29] LABS: BAND NEUTROPHILS % (MANUAL) 1 %; EOSINOPHILS % (MANUAL) 1 % (0-7); LYMPHOCYTES % (MANUAL) 12 % (19-48); METAMYELOCYTES % (MANUAL) 1 % (0-0); MONOCYTES % (MANUAL) 21 % (3.4-9.0); MYELOCYTES % (MANUAL) 1 % (0-0); NEUTROPHILS % (MANUAL) 63 % (40-74)
[2018-06-08 07:30] VITALS: BP 124/50
[2018-06-08 07:33] LABS: HYPOCHROMASIA MODERATE; PLATELET ESTIMATE ADEQUATE; POLYCHROMASIA FEW; RBC MORPHOLOGY COMMENT NORMAL; SMUDGE CELLS FEW
[2018-06-08 07:34] LABS: ANISOCYTOSIS MODERATE; PLATELET MORPHOLOGY COMMENT NORMAL; POIKILOCYTOSIS SLIGHT
[2018-06-08] MEDS: POTASSIUM CHLORIDE 20 MEQ TAB CR PO SCH ×2 (08:00→16:20)
[2018-06-08] MEDS: LOSARTAN POTASSIUM 100 MG TAB PO SCH (08:38)
[2018-06-08] MEDS: DANAZOL 100 MG CAP PO SCH (08:39)
[2018-06-08] MEDS: AMLODIPINE BESYLATE 10 MG TAB PO SCH (08:39)
[2018-06-08] MEDS: PREDNISONE 10 MG TAB PO SCH (08:39)
[2018-06-08] MEDS: PANTOPRAZOLE 40 MG 10ML VIAL IV SCH ×2 (08:39→16:20)
[2018-06-08 09:03] VITALS: BP 124/50
[2018-06-08 11:48] VITALS: BP 127/62
[2018-06-08 15:51] LABS: AMYLASE 45 U/L (25-125); LIPASE 55 U/L (8-78)
[2018-06-08] MEDS ORDERED: SODIUM CHLORIDE 0.9% 250ML 250 ML ONE (16:09)
[2018-06-08 16:20] VITALS: BP 117/52
[2018-06-08] MEDS: METRONIDAZOLE 500MG/NS 100ML 100 ML IV SCH ×2 (16:20→23:50)
[2018-06-08] MEDS: CEFEPIME HCL 1 GM VIAL IV SCH ×2 (16:20→20:58)
--- NOTE | 2018-06-08 17:12 | Consultation ---
DATE OF CONSULTATION: REASON FOR CONSULTATION: Cough, weakness, and shortness of breath. HISTORY OF PRESENT ILLNESS: This patient, who s a very pleasant 82-year-old white female, not a good source of information. She is forgetful. She does have underlying history of dementia, history of idiopathic thrombocytopenic purpura, hypothyroidism, and hypertension. Patient comes in with 5 days of shortness of breath, leg swelling bilateral. No nausea. No vomiting. The patient is not a good source of information as mentioned above and there is really no family for me to review with. The patient is here. I have reviewed her record. She has no complaints except she is weak. The patient was admitted with acute congestive heart failure, leukocytosis, concern about pneumonia. Patient was admitted. She was seen by cardiology, hematology and oncology, started on Levaquin. Infectious disease was consulted. PAST MEDICAL HISTORY 1. Dementia. 2. Hyperlipidemia. 3. Hypertension. 4. Hypothyroidism. 5. Idiopathic thrombocytopenic purpura. PAST SURGICAL HISTORY: Back surgery and hysterectomy. ALLERGIES: NKA. SOCIAL HISTORY: There is no smoking, drug abuse, or alcohol abuse. FAMILY HISTORY: Her sister had cancer. REVIEW OF SYSTEMS GENERAL: She is generally weak. HEENT: There is no headache, visual changes, or hearing changes. GI: There is no nausea, no vomiting. CARDIAC: There is no arrhythmia. NEURO: No seizure activity. SKIN: There is no rash. The patient was admitted. She was diagnosed with [id number] myocardial infarction. She was seen by cardiology. Her blood culture is negative for 48 hours. Her urine culture is negative for 24 hours. Her white count is 12.81, hemoglobin 8.5, hematocrit 25, and platelet 175. Sodium 140, potassium 4.0, and creatinine 1.24. PHYSICAL EXAMINATION GENERAL: She is alert, very pleasant, does not seem to be in acute distress, running fever up to 101.7. HEENT: She is normocephalic, not appear icteric. NECK: Supple. CHEST: Clear. COR: S1 and S2. There is no murmur. ABDOMEN: Soft. Bowel sounds present. No tenderness. EXTREMITIES: No edema. SKIN: There is no rash. IMPRESSION AND PLAN 1. Fever, leukocytosis, and weakness. The patient has dementia. It is very hard to tell. Concerned about the infection; however, the source is unclear. I would recommend to obtain CT of abdomen and pelvis and change her to Zosyn till we know what are we dealing with. 2. Recheck CBC. Recheck Chem panel. 3. Congestive heart failure, ST elevation myocardial infarction. We will follow with you. Job#: [id number] LPA
[2018-06-08] MEDS: LEVOFLOXACIN 500MG/D5W 100ML 100 ML IV SCH (17:33)
--- NOTE | 2018-06-08 19:21 | Diagnostic Imaging Report ---
EXAM: CT Abdomen and Pelvis WITH contrast INDICATION: Loose stool, shortness of breath, bloody diarrhea. Rule out infection. COMPARISON: None. TECHNIQUE: Abdomen and pelvis were scanned utilizing a multidetector helical scanner from the lung base to the pubic symphysis after administration of IV contrast. Coronal and sagittal reformations were obtained. Routine protocol is performed. IV CONTRAST: None. ORAL CONTRAST: None RADIATION DOSE: Total DLP: 319.74 mGy*cm Estimated effective dose: (DLP x 0.015 x size factor) mSv COMPLICATIONS: None FINDINGS: LINES and TUBES: A Walsh catheter has its tip in the bladder. LOWER THORAX: Diffuse groundglass opacities in lung bases. Trace left pleural effusion. Calcifications at the aortic root and of the mitral annulus. HEPATOBILIARY: No focal hepatic lesions. No biliary ductal dilation. GALLBLADDER: No radio-opaque stones or sludge. No wall thickening. SPLEEN: No splenomegaly. PANCREAS: No focal masses or ductal dilatation. ADRENALS: No adrenal nodules KIDNEYS/URETERS: The right kidney is smaller than the left. No hydronephrosis. No cystic or solid mass lesions. No stones. GI TRACT: No abnormal distention, wall thickening, or evidence of bowel obstruction. Numerous colonic diverticula without evidence of acute inflammation. There is solid stool in the colon. Appendix is normal. PELVIC ORGANS/BLADDER: The uterus is absent. The bladder is decompressed by Walsh catheter. LYMPH NODES: No lymphadenopathy. VESSELS: There is severe atherosclerotic disease in the aorta and major arterial branches. PERITONEUM / RETROPERITONEUM: No free air or fluid. BONES: Multilevel degenerative changes of the thoracic and lumbar spine. Moderate facet arthrosis affects the lower lumbar spine. SOFT TISSUES: Unremarkable. IMPRESSION: 1. Colonic diverticulosis. No evidence of acute diverticulitis. 2. Limited views of the lung bases reveal diffuse groundglass opacities, likely representing pulmonary edema. Moi Colon MD Signed by: Dr. Moi Colon M.D. on 06/08/2018 7:18 PM
[2018-06-08 20:00] VITALS: BP 114/55
[2018-06-08] MEDS: ATORVASTATIN 40 MG TAB PO SCH (20:58)
[2018-06-09 00:15] VITALS: BP 114/71
[2018-06-09] MEDS: FUROSEMIDE INJ 10 MG/ML 4 ML VIAL IV SCH (00:37)
[2018-06-09 05:41] LABS: BASOPHILS % 0.2 % (0.0-1.0); EOSINOPHILS # (AUTO) 0.1 (0.0-0.4); HEMATOCRIT 26.9 % (34.2-44.1); HEMOGLOBIN 8.6 g/dL (12.0-16.0); LYMPHOCYTES # (AUTO) 1.4 (1.0-3.2); LYMPHOCYTES % 11.5 % (18.0-39.1); MEAN CORPUSCULAR HEMOGLOBIN 31.7 pg (28-32); MEAN CORPUSCULAR VOLUME 99.3 fL (81-99); MONOCYTES # (AUTO) 3.9 (0.2-0.8); MONOCYTES % 32.5 % (4.4-11.3); NEUTROPHILS # (AUTO) 6.3 (2.1-6.9); NEUTROPHILS % 52.1 % (38.7-80.0); PLATELET COUNT 207 x10e3/uL (140-360); RED BLOOD COUNT 2.71 x10e6/uL (3.6-5.1); RED CELL DISTRIBUTION WIDTH 17.4 % (11.7-14.4)
[2018-06-09 06:09] LABS: ANION GAP 16.5 mmol/L (8-16); CALCIUM 8.5 mg/dL (8.4-10.2); CREATININE, SERUM 1.42 mg/dL (0.57-1.11); POTASSIUM 3.5 mmol/L (3.5-5.1)
[2018-06-09] MEDS: LEVOTHYROXINE SODIUM 50 MCG TAB PO SCH (06:26)
[2018-06-09] MEDS: CEFEPIME HCL 1 GM VIAL IV SCH ×3 (06:26→21:31)
[2018-06-09 07:45] VITALS: BP 109/61
[2018-06-09 08:08] VITALS: BP 109/61
[2018-06-09] MEDS: DANAZOL 100 MG CAP PO SCH (08:24)
[2018-06-09] MEDS: PREDNISONE 10 MG TAB PO SCH (08:24)
[2018-06-09] MEDS: PANTOPRAZOLE 40 MG 10ML VIAL IV SCH ×2 (08:24→18:30)
[2018-06-09] MEDS: METRONIDAZOLE 500MG/NS 100ML 100 ML IV SCH ×3 (08:25→23:48)
[2018-06-09] MEDS: LOSARTAN POTASSIUM 100 MG TAB PO SCH (08:26)
[2018-06-09] MEDS: AMLODIPINE BESYLATE 10 MG TAB PO SCH (08:26)
[2018-06-09] MEDS: POTASSIUM CHLORIDE 20 MEQ TAB CR PO SCH ×2 (08:27→08:41)
[2018-06-09] MEDS ORDERED: ACETAMINOPHEN 325 MG TAB PO PRN (08:30)
[2018-06-09] MEDS ORDERED: PREDNISONE 10 MG TAB PO SCH (09:00)
[2018-06-09 09:20] LABS: ANISOCYTOSIS SLIGHT; EOSINOPHILS % (MANUAL) 3 % (0-7); HYPOCHROMASIA SLIGHT; LYMPHOCYTES % (MANUAL) 8 % (19-48); MONOCYTES % (MANUAL) 20 % (3.4-9.0); NEUTROPHILS % (MANUAL) 69 % (40-74); NUCLEATED RED BLOOD CELLS 1
[2018-06-09 09:21] LABS: PLATELET ESTIMATE ADEQUATE; PLATELET MORPHOLOGY COMMENT FEW LARGE; POIKILOCYTOSIS SLIGHT; RBC MORPHOLOGY COMMENT NORMAL
[2018-06-09] MEDS: FUROSEMIDE 40 MG TAB PO SCH (15:01)
[2018-06-09 15:13] VITALS: BP 113/61
[2018-06-09] MEDS: LEVOFLOXACIN 500MG/D5W 100ML 100 ML IV SCH (18:30)
--- NOTE | 2018-06-09 19:33 | Diagnostic Imaging Report ---
Tagged-RBC GI Bleed Study Clinical information: 82-year-old female with bloody diarrhea on and off x 2-3 weeks. Discussion: The patient's own red blood cells were labeled with 25 mCi of technetium-99m pertechnetate using the in vitro method (UltraTag). Dynamic images of the abdomen were obtained through 60 minutes. Distribution of tracer activity appears physiologic throughout the abdomen. No abnormal accumulation of tracer is seen within the gastrointestinal lumen. Impression: No scan evidence of active gastrointestinal bleeding at this time. Signed by: Dr. Dilcia Whitehead M.D. on 06/09/2018 7:30 PM
[2018-06-09 20:00] VITALS: BP 118/55
[2018-06-09 20:38] VITALS: BP 118/55
[2018-06-09] MEDS: ATORVASTATIN 40 MG TAB PO SCH (21:00)
[2018-06-10] VITALS (7 sets, daily range): BP systolic 106–147; BP diastolic 56–63
[2018-06-10] MEDS: CEFEPIME HCL 1 GM VIAL IV SCH ×3 (05:25→21:11)
[2018-06-10] MEDS: LEVOTHYROXINE SODIUM 50 MCG TAB PO SCH (05:25)
[2018-06-10 05:43] LABS: BASOPHILS # (AUTO) 0.1 (0.0-0.1); BASOPHILS % 0.4 % (0.0-1.0); EOSINOPHILS # (AUTO) 0.1 (0.0-0.4); EOSINOPHILS % 0.6 % (0.0-6.0); HEMATOCRIT 27.4 % (34.2-44.1); HEMOGLOBIN 8.5 g/dL (12.0-16.0); LYMPHOCYTES # (AUTO) 1.8 (1.0-3.2); LYMPHOCYTES % 14.8 % (18.0-39.1); MEAN CORPUSCULAR HEMOGLOBIN 31.8 pg (28-32); MONOCYTES # (AUTO) 3.1 (0.2-0.8); MONOCYTES % 25.8 % (4.4-11.3); NEUTROPHILS # (AUTO) 6.5 (2.1-6.9); NEUTROPHILS % 54.4 % (38.7-80.0); PLATELET COUNT 183 x10e3/uL (140-360); RED BLOOD COUNT 2.67 x10e6/uL (3.6-5.1)
[2018-06-10 05:45] LABS: MEAN CORPUSCULAR VOLUME 102.6 fL (81-99)
[2018-06-10 06:05] LABS: ALBUMIN 2.3 g/dL (3.5-5.0); ALBUMIN/GLOBULIN RATIO 0.6 (0.8-2.0); CALCIUM 8.4 mg/dL (8.4-10.2); CREATININE, SERUM 1.24 mg/dL (0.57-1.11)
[2018-06-10 07:12] LABS: EOSINOPHILS % (MANUAL) 1 % (0-7); LYMPHOCYTES % (MANUAL) 15 % (19-48); METAMYELOCYTES % (MANUAL) 2 % (0-0); MONOCYTES % (MANUAL) 15 % (3.4-9.0); MYELOCYTES % (MANUAL) 1 % (0-0); NEUTROPHILS % (MANUAL) 66 % (40-74)
[2018-06-10 07:16] LABS: PLATELET ESTIMATE ADEQUATE; PLATELET MORPHOLOGY COMMENT NORMAL; RBC MORPHOLOGY COMMENT ABNORMAL
[2018-06-10 07:17] LABS: ANISOCYTOSIS SLIGHT; POIKILOCYTOSIS MODERATE
[2018-06-10 07:18] LABS: BURR CELLS MODERATE
[2018-06-10 07:19] LABS: ROULEAU FEW
[2018-06-10] MEDS: PANTOPRAZOLE 40 MG 10ML VIAL IV SCH ×2 (08:48→16:40)
[2018-06-10] MEDS: POTASSIUM CHLORIDE 20 MEQ TAB CR PO SCH (08:48)
[2018-06-10] MEDS: METRONIDAZOLE 500MG/NS 100ML 100 ML IV SCH ×2 (08:48→16:40)
[2018-06-10] MEDS: DANAZOL 100 MG CAP PO SCH (08:48)
[2018-06-10] MEDS: LOSARTAN POTASSIUM 100 MG TAB PO SCH (08:48)
[2018-06-10] MEDS: FUROSEMIDE 40 MG TAB PO SCH (08:48)
[2018-06-10] MEDS: AMLODIPINE BESYLATE 10 MG TAB PO SCH (08:48)
[2018-06-10] MEDS: PREDNISONE 10 MG TAB PO SCH (08:48)
[2018-06-10] MEDS: LEVOFLOXACIN 500MG/D5W 100ML 100 ML IV SCH (17:59)
[2018-06-10] MEDS: ZOLPIDEM TARTRATE 5 MG TAB PO PRN (21:11)
[2018-06-10] MEDS: ATORVASTATIN 40 MG TAB PO SCH (21:11)
[2018-06-11] VITALS (8 sets, daily range): BP systolic 103–137; BP diastolic 53–63
[2018-06-11] MEDS ORDERED: SODIUM CHLORIDE 0.9% 500ML 500 ML ONE (00:40)
[2018-06-11 05:47] LABS: BASOPHILS % 0.3 % (0.0-1.0); EOSINOPHILS % 0.2 % (0.0-6.0); HEMATOCRIT 25.2 % (34.2-44.1); HEMOGLOBIN 8.3 g/dL (12.0-16.0); LYMPHOCYTES # (AUTO) 1.3 (1.0-3.2); LYMPHOCYTES % 9.5 % (18.0-39.1); MEAN CORPUSCULAR HEMOGLOBIN 32.2 pg (28-32); MEAN CORPUSCULAR HGB CONC 32.9 g/dL (31-35); MONOCYTES # (AUTO) 3.9 (0.2-0.8); MONOCYTES % 27.6 % (4.4-11.3); NEUTROPHILS # (AUTO) 8.1 (2.1-6.9); NEUTROPHILS % 57.5 % (38.7-80.0); PLATELET COUNT 203 x10e3/uL (140-360); RED BLOOD COUNT 2.58 x10e6/uL (3.6-5.1); RED CELL DISTRIBUTION WIDTH 16.6 % (11.7-14.4)
[2018-06-11 05:51] LABS: MEAN CORPUSCULAR VOLUME 97.7 fL (81-99)
[2018-06-11] MEDS: LEVOTHYROXINE SODIUM 50 MCG TAB PO SCH (05:55)
[2018-06-11] MEDS: CEFEPIME HCL 1 GM VIAL IV SCH ×3 (05:55→21:24)
[2018-06-11 08:10] LABS: LYMPHOCYTES % (MANUAL) 10 % (19-48); MONOCYTES % (MANUAL) 20 % (3.4-9.0); NEUTROPHILS % (MANUAL) 70 % (40-74); PLATELET MORPHOLOGY COMMENT NORMAL; RBC MORPHOLOGY COMMENT NORMAL
[2018-06-11 08:11] LABS: PLATELET ESTIMATE ADEQUATE
[2018-06-11] MEDS: METRONIDAZOLE 500MG/NS 100ML 100 ML IV SCH ×3 (08:57→16:17)
[2018-06-11] MEDS: AMLODIPINE BESYLATE 10 MG TAB PO SCH (09:06)
[2018-06-11] MEDS: PREDNISONE 10 MG TAB PO SCH (09:06)
[2018-06-11] MEDS: PANTOPRAZOLE 40 MG 10ML VIAL IV SCH ×2 (09:06→16:17)
[2018-06-11] MEDS: DANAZOL 100 MG CAP PO SCH (09:06)
[2018-06-11] MEDS: FUROSEMIDE 40 MG TAB PO SCH (09:06)
[2018-06-11] MEDS: LOSARTAN POTASSIUM 100 MG TAB PO SCH (09:06)
[2018-06-11] MEDS: POTASSIUM CHLORIDE 20 MEQ TAB CR PO SCH (09:06)
[2018-06-11] MEDS: LEVOFLOXACIN 500MG/D5W 100ML 100 ML IV SCH (17:26)
[2018-06-11] MEDS: ATORVASTATIN 40 MG TAB PO SCH (21:24)
[2018-06-12] VITALS (7 sets, daily range): BP systolic 112–143; BP diastolic 58–67
[2018-06-12] MEDS: METRONIDAZOLE 500MG/NS 100ML 100 ML IV SCH ×3 (00:51→16:40)
[2018-06-12] MEDS: CEFEPIME HCL 1 GM VIAL IV SCH (05:26)
[2018-06-12] MEDS: LEVOTHYROXINE SODIUM 50 MCG TAB PO SCH (05:26)
[2018-06-12 06:09] LABS: BASOPHILS # (AUTO) 0.1 (0.0-0.1); BASOPHILS % 0.3 % (0.0-1.0); EOSINOPHILS # (AUTO) 0.2 (0.0-0.4); HEMATOCRIT 28.3 % (34.2-44.1); HEMOGLOBIN 9.1 g/dL (12.0-16.0); LYMPHOCYTES # (AUTO) 2.7 (1.0-3.2); MEAN CORPUSCULAR HEMOGLOBIN 31.6 pg (28-32); MEAN CORPUSCULAR HGB CONC 32.2 g/dL (31-35); MEAN CORPUSCULAR VOLUME 98.3 fL (81-99); MONOCYTES # (AUTO) 5.4 (0.2-0.8); MONOCYTES % 26.3 % (4.4-11.3); NEUTROPHILS # (AUTO) 11.2 (2.1-6.9); NEUTROPHILS % 54.3 % (38.7-80.0); PLATELET COUNT 251 x10e3/uL (140-360); RED BLOOD COUNT 2.88 x10e6/uL (3.6-5.1); RED CELL DISTRIBUTION WIDTH 16.5 % (11.7-14.4)
[2018-06-12 06:35] LABS: ALBUMIN 2.6 g/dL (3.5-5.0); ALBUMIN/GLOBULIN RATIO 0.7 (0.8-2.0); ANION GAP 16.6 mmol/L (8-16); CALCIUM 8.6 mg/dL (8.4-10.2); CREATININE, SERUM 1.35 mg/dL (0.57-1.11); MAGNESIUM 1.6 MG/DL (1.3-2.1); POTASSIUM 3.6 mmol/L (3.5-5.1)
[2018-06-12 07:00] LABS: ANISOCYTOSIS SLIGHT; EOSINOPHILS % (MANUAL) 1 % (0-7); HYPOCHROMASIA SLIGHT; LYMPHOCYTES % (MANUAL) 12 % (19-48); MONOCYTES % (MANUAL) 23 % (3.4-9.0); NEUTROPHILS % (MANUAL) 64 % (40-74)
[2018-06-12 07:01] LABS: PLATELET ESTIMATE ADEQUATE; PLATELET MORPHOLOGY COMMENT FEW LARGE; RBC MORPHOLOGY COMMENT NORMAL
[2018-06-12 07:10] LABS: THYROID STIMULATING HORMONE 3.84 uIU/mL (0.350-4.940)
[2018-06-12 07:27] LABS: FOLATE 7.8 ng/mL (7.0-15.4)
[2018-06-12] MEDS: LOSARTAN POTASSIUM 100 MG TAB PO SCH (09:49)
[2018-06-12] MEDS: FUROSEMIDE 40 MG TAB PO SCH (09:49)
[2018-06-12] MEDS: DANAZOL 100 MG CAP PO SCH (09:49)
[2018-06-12] MEDS: POTASSIUM CHLORIDE 20 MEQ TAB CR PO SCH (09:49)
[2018-06-12] MEDS: PANTOPRAZOLE 40 MG 10ML VIAL IV SCH ×2 (09:49→16:40)
[2018-06-12] MEDS: AMLODIPINE BESYLATE 10 MG TAB PO SCH (09:49)
[2018-06-12] MEDS: PREDNISONE 10 MG TAB PO SCH (12:13)
[2018-06-12] MEDS: ATORVASTATIN 40 MG TAB PO SCH (21:00)
[2018-06-13] VITALS (8 sets, daily range): BP systolic 105–137; BP diastolic 52–97
[2018-06-13 05:15] LABS: BASOPHILS # (AUTO) 0.1 (0.0-0.1); BASOPHILS % 0.5 % (0.0-1.0); EOSINOPHILS # (AUTO) 0.4 (0.0-0.4); EOSINOPHILS % 2.5 % (0.0-6.0); HEMATOCRIT 28.2 % (34.2-44.1); HEMOGLOBIN 8.8 g/dL (12.0-16.0); LYMPHOCYTES # (AUTO) 1.5 (1.0-3.2); LYMPHOCYTES % 10.6 % (18.0-39.1); MEAN CORPUSCULAR HEMOGLOBIN 30.9 pg (28-32); MEAN CORPUSCULAR HGB CONC 31.2 g/dL (31-35); MEAN CORPUSCULAR VOLUME 98.9 fL (81-99); MONOCYTES # (AUTO) 4.1 (0.2-0.8); MONOCYTES % 28.5 % (4.4-11.3); NEUTROPHILS # (AUTO) 7.4 (2.1-6.9); PLATELET COUNT 210 x10e3/uL (140-360); RED BLOOD COUNT 2.85 x10e6/uL (3.6-5.1); RED CELL DISTRIBUTION WIDTH 16.5 % (11.7-14.4)
[2018-06-13] MEDS: LEVOTHYROXINE SODIUM 50 MCG TAB PO SCH (05:40)
[2018-06-13 05:56] LABS: ANION GAP 17.8 mmol/L (8-16); CALCIUM 8.4 mg/dL (8.4-10.2); CREATININE, SERUM 1.29 mg/dL (0.57-1.11); POTASSIUM 3.8 mmol/L (3.5-5.1)
[2018-06-13 07:22] LABS: EOSINOPHILS % (MANUAL) 1 % (0-7); LYMPHOCYTES % (MANUAL) 21 % (19-48); METAMYELOCYTES % (MANUAL) 2 % (0-0); MONOCYTES % (MANUAL) 14 % (3.4-9.0); MYELOCYTES % (MANUAL) 3 % (0-0); NEUTROPHILS % (MANUAL) 59 % (40-74)
[2018-06-13 07:34] LABS: ANISOCYTOSIS SLIGHT; HYPOCHROMASIA SLIGHT; PLATELET ESTIMATE ADEQUATE; PLATELET MORPHOLOGY COMMENT NORMAL; RBC MORPHOLOGY COMMENT NORMAL
[2018-06-13] MEDS: METRONIDAZOLE 500MG/NS 100ML 100 ML IV SCH ×3 (09:15→16:22)
[2018-06-13] MEDS: PANTOPRAZOLE 40 MG 10ML VIAL IV SCH (09:26)
[2018-06-13] MEDS: DANAZOL 100 MG CAP PO SCH (09:27)
[2018-06-13] MEDS: POTASSIUM CHLORIDE 20 MEQ TAB CR PO SCH (09:27)
[2018-06-13] MEDS: LOSARTAN POTASSIUM 100 MG TAB PO SCH (09:27)
[2018-06-13] MEDS: FUROSEMIDE 40 MG TAB PO SCH (09:27)
[2018-06-13] MEDS: PREDNISONE 10 MG TAB PO SCH (09:27)
[2018-06-13] MEDS: AMLODIPINE BESYLATE 10 MG TAB PO SCH (09:27)
--- NOTE | 2018-06-13 20:18 | Diagnostic Imaging Report ---
History:Left arm weakness Comparison studies:None Technique: Axial images were obtained from the skull base to the vertex. Coronal and sagittal images reconstructed from the axial data. Intravenous contrast: None Dose modulation, iterative reconstruction, and/or weight based adjustment of the mA/kV was utilized to reduce the radiation dose to as low as reasonably achievable. Findings: Scalp/skull: No abnormalities. Extra-axial spaces: No masses. No fluid collections. Brain sulci: Moderately prominent. Ventricles: Moderate compensatory dilatation. No hydrocephalus. Parenchyma: Confluent and scattered hypodensities in the supratentorial white matter are small vessel ischemic changes. No masses, hemorrhage, acute or chronic cortical vascular insults. Sellar/suprasellar region: No abnormalities. Craniocervical junction: Patent foramen magnum. No Chiari one malformation. Incidental findings: Atherosclerotic calcifications in the carotid siphons . Impression: No acute abnormalities. Chronic findings: 1. Moderate generalized volume loss. 2. Moderate ventriculomegaly, this could be related to central volume loss 3. Severe supratentorial white matter small vessel ischemic changes. Signed by: DR Uri Woods M.D. on 06/13/2018 8:14 PM
[2018-06-13] MEDS: ATORVASTATIN 40 MG TAB PO SCH (20:53)
[2018-06-14] VITALS (7 sets, daily range): BP systolic 113–164; BP diastolic 56–78
[2018-06-14 05:31] LABS: BASOPHILS # (AUTO) 0.1 (0.0-0.1); BASOPHILS % 0.5 % (0.0-1.0); EOSINOPHILS # (AUTO) 0.2 (0.0-0.4); EOSINOPHILS % 1.7 % (0.0-6.0); HEMATOCRIT 30.1 % (34.2-44.1); HEMOGLOBIN 9.4 g/dL (12.0-16.0); LYMPHOCYTES # (AUTO) 1.8 (1.0-3.2); LYMPHOCYTES % 13.6 % (18.0-39.1); MEAN CORPUSCULAR HEMOGLOBIN 31.3 pg (28-32); MEAN CORPUSCULAR HGB CONC 31.2 g/dL (31-35); MEAN CORPUSCULAR VOLUME 100.3 fL (81-99); MONOCYTES # (AUTO) 3.6 (0.2-0.8); MONOCYTES % 28.2 % (4.4-11.3); NEUTROPHILS # (AUTO) 6.5 (2.1-6.9); NEUTROPHILS % 50.5 % (38.7-80.0); PLATELET COUNT 105 x10e3/uL (140-360); RED CELL DISTRIBUTION WIDTH 16.5 % (11.7-14.4)
[2018-06-14 05:47] LABS: ANION GAP 17.9 mmol/L (8-16); CALCIUM 8.5 mg/dL (8.4-10.2); CREATININE, SERUM 1.18 mg/dL (0.57-1.11); POTASSIUM 3.9 mmol/L (3.5-5.1)
[2018-06-14] MEDS: LEVOTHYROXINE SODIUM 50 MCG TAB PO SCH (06:34)
[2018-06-14 07:40] LABS: ANISOCYTOSIS SLIGHT; HYPOCHROMASIA SLIGHT; LYMPHOCYTES % (MANUAL) 15 % (19-48); METAMYELOCYTES % (MANUAL) 2 % (0-0); MONOCYTES % (MANUAL) 23 % (3.4-9.0); MYELOCYTES % (MANUAL) 3 % (0-0); NEUTROPHILS % (MANUAL) 57 % (40-74); PLATELET ESTIMATE SLIGHTLY DECREASED; PLATELET MORPHOLOGY COMMENT FEW LARGE; RBC MORPHOLOGY COMMENT NORMAL
[2018-06-14] MEDS: METRONIDAZOLE 500MG/NS 100ML 100 ML IV SCH ×4 (08:58→23:41)
[2018-06-14] MEDS: DANAZOL 100 MG CAP PO SCH (08:58)
[2018-06-14] MEDS: LOSARTAN POTASSIUM 100 MG TAB PO SCH (08:58)
[2018-06-14] MEDS: PANTOPRAZOLE 40 MG 10ML VIAL IV SCH (08:58)
[2018-06-14] MEDS: AMLODIPINE BESYLATE 10 MG TAB PO SCH (08:59)
[2018-06-14] MEDS: PREDNISONE 10 MG TAB PO SCH (08:59)
[2018-06-14] MEDS: POTASSIUM CHLORIDE 20 MEQ TAB CR PO SCH (08:59)
[2018-06-14] MEDS: FUROSEMIDE 40 MG TAB PO SCH (08:59)
[2018-06-14 19:42] LABS: CHOL/HDL RATIO 6.4 (3.0-3.6)
[2018-06-14] MEDS: ZOLPIDEM TARTRATE 5 MG TAB PO PRN (20:22)
[2018-06-14] MEDS: ATORVASTATIN 40 MG TAB PO SCH (20:22)
--- NOTE | 2018-06-14 21:58 | Consultation ---
DATE OF CONSULTATION: June 14, 2018 NEUROLOGY CONSULT NOTE HISTORY OF PRESENT ILLNESS: Ms. Garcia is an 82-year-old right hand dominant woman with past medical history significant for hypertension, hyperlipidemia, and possible congestive heart failure, admitted to [facility] on June 06, 2018 with possible left ventricular heart failure with hypoxemia, myocardial infarction, chronic gastrointestinal bleed, and anemia. On June 13, 2018, the patient reported weakness of the left arm to her nurse. The nurse reported this symptom to the patient's attending physician, Dr. River. He requested a neurology consultation for left arm weakness. Ms. Garcia first noted weakness of the left arm beginning approximately 1 week ago. The patient reports waking up one morning with weakness of the left hand and arm as well as numbness affecting the left hand. Ms. Garcia does report chronic intermittent neck pain, but she does not endorse radicular pain affecting the left arm. She reports no painful symptoms affecting the left arm. In addition to the aforementioned symptoms, the patient reports dysarthria, occasional expressive aphasia, and confusion. Ms. Garcia does not report a visual field cut or other disturbance; facial droop; weakness affecting the left leg; numbness over the left side of the face, left hemibody, or left leg; or dizziness. Ms. Garcia has not experienced similar symptoms previously. To her knowledge, the patient is not taking antiplatelet or anticoagulant medication at home. A diagnosis of dementia is documented in several notes during this hospitalization. However, Ms. Garcia denies a diagnosis of dementia. She has not seen a physician for evaluation or treatment of memory loss. REVIEW OF SYSTEMS: Shortness of breath, cough, nasal congestion, confusion, dysarthria, occasional expressive aphasia, weakness of the left arm, numbness of the left hand, and chronic neck pain. Otherwise, the 12-point review of systems is negative. PAST MEDICAL HISTORY: Hypertension, hyperlipidemia, possible newly diagnosed congestive heart failure, possible newly diagnosed myocardial infarction, thyroid disease, prior history of migraines, and dementia. PAST SURGICAL HISTORY: Hysterectomy, lumbar spine surgery, and bilateral cataract removal. PAST HOSPITALIZATIONS: Surgeries/procedures as listed, childbirth x3. FAMILY MEDICAL HISTORY: The patient's paternal and maternal grandparents are . Their medical histories are unknown. The patient's father is . His medical history is unknown. Ms. Garcia's mother is from heart disease. The patient has 2 sisters, both of whom are alive. Her younger sister smokes cigarettes "like a fiend." Otherwise, both sisters are healthy. Ms. Garcia had 3 children, one daughter and 2 sons. Her daughter is alive and healthy. Her oldest son is , cause of unknown. Her youngest son from throat cancer. SOCIAL HISTORY: Ms. Garcia is a x4. She is retired. The patient reports a remote history of tobacco use, but quit smoking cigarettes 50 years ago. The patient does not report current or prior alcohol, or recreational drug use. HOME MEDICATIONS: Amlodipine 10 mg by mouth daily, atorvastatin 40 mg by mouth daily, danazol 200 mg by mouth 3 times daily, levothyroxine 50 mcg by mouth daily, losartan 100 mg by mouth daily, pantoprazole 40 mg by mouth daily, and prednisone 60 mg by mouth daily for 50 days. ALLERGIES: NO KNOWN DRUG ALLERGIES. NO KNOWN FOOD ALLERGIES. NO KNOWN ALLERGIES TO LATEX. NO KNOWN ALLERGIES TO IODINE OR OTHER CONTRAST MATERIALS. PHYSICAL EXAMINATION: VITAL SIGNS: Height 63 inches, weight 146 pounds, BMI 25.9 kg/sq m. Blood pressure 122/61 mmHg, pulse 77 beats per minute, respiratory rate 18 breaths per minute, oxygen saturation 96% on 3 liters by nasal cannula. GENERAL: The patient is awake and alert, does not appear distressed. HEENT: Normocephalic, atraumatic. Pupils are surgical. Moist mucous membranes. NECK: Supple. No appreciable thyromegaly. No appreciable carotid bruits. CARDIOVASCULAR: S1, S2, regular rate and rhythm. No murmurs, rubs, or gallops. RESPIRATORY: Clear to auscultation bilaterally. No wheezes, rhonchi, or rales. EXTREMITIES: The skin is warm and dry. No clubbing, cyanosis, or edema. The posterior tibial and dorsalis pedis pulses are 1+ and symmetric. SKIN: Abrasions/bruises over the forearms. NEUROLOGIC EXAMINATION: MEMORY/ATTENTION: The patient is awake and alert, oriented to person, place (county and state), time (season and year), and minimally to situation. CRANIAL NERVES: Cranial nerve I - not tested. Cranial nerves II, III, IV, and - Pupils are surgical. Extraocular movements intact. No nystagmus. Cranial nerve V - Sensation to light touch and pinprick is intact in the bilateral V1 through V3 distributions. Strength of the temporalis and masseter muscles is within normal limits. Cranial nerve VII - The face is symmetric as are all facial movements. Strength is within normal limits. Cranial nerve VIII - Hearing is markedly decreased to finger rub bilaterally. Cranial nerve IX, X - The soft palate elevates equally and symmetrically. Cranial nerve XI - Normal strength of the bilateral sternocleidomastoid and trapezius muscles. Cranial nerve XII - The tongue protrudes midline and moves symmetrically from side to side. STRENGTH: Bulk is normal. Ms. Garcia is able to lift the left arm against gravity, but it drops to the bed in less than 5 seconds. She is able to maintain the right arm against gravity for more than 10 seconds without drift. Finger flexors are 4/5 on the left, 5/5 on the right. The patient is able to maintain both legs against gravity for more than 5 seconds each with drift in the left leg. Left ankle dorsiflexion is 4/5, left ankle plantarflexion is 4+/5, right ankle dorsiflexion and plantarflexion is 5/5. Tone is decreased in the left arm. DTRs: Deep tendon reflexes are 1+ and symmetric at the triceps, biceps, brachioradialis, and patellas. Deep tendon reflexes are absent and symmetric at the Achilles. Plantar responses are flexor bilaterally. SENSATION: Sensation is intact to light touch and pinprick in both arms and both legs. CEREBELLAR: Szbzjw-zqqt-daiyor and heel-rawls movements are intact without dysmetria or other impairment except as follows: Impaired in the left arm. GAIT: Deferred. SPEECH: Spontaneous speech is mildly dysarthric without aphasia. Repetition is intact. INVOLUNTARY MOVEMENTS: None. PRONATOR DRIFT: As per motor exam. LABORATORY DATA: The patient's most recent BMP is significant for a decreased carbon dioxide of 18, an elevated anion gap of 17.9, an elevated BUN of 27, an elevated creatinine of 1.18, an estimated GFR of 44, and a low serum glucose of 67. The CBC with differential and platelets reveals a white blood cell count of 12.83 with 50.5% neutrophils, 13.6% lymphocytes, 28.2% monocytes, 1.7% eosinophils, and 0.5% basophils. The hemoglobin and hematocrit are 9.4 and 30.1, respectively. The platelet count is 105,000. A urinalysis collected on June 06, 2018 was significant for 2+ protein, trace blood, and 6 to 10 red blood cells. Stool occult blood was positive on June 07, 2018. C. difficile toxin A and B were negative on June 07, 2018 and June 12, 2018. Blood cultures drawn on June 06, 2018 revealed no growth after 5 days. A urine culture collected on June 06, 2018 revealed no growth after 36 to 48 hours. DIAGNOSTIC STUDIES: 1. EKG, June 06, 2018: Sinus tachycardia at 110 beats per minute with occasional premature ventricular contractions. 2. Chest x-ray, June 06, 2018: A. Lines and tubes: None. B. Lungs are well inflated. Stable 3-mm nodular density projected within the posterior aspect of the right 6th and 7th ribs. Diffuse interstitial opacities extending from bilateral monica are consistent with interstitial edema/fluid overload. No definite consolidation. C. Cardiomediastinal silhouette is normal. Central pulmonary venous congestion. Calcified thoracic aorta. D. No acute bony abnormalities. 3. Chest x-ray, June 07, 2018: A. Stable cardiomediastinal silhouette. Aortic calcifications. B. Diffuse opacities, increased from prior, likely due to edema. C. Small effusions. 4. Echocardiogram, June 07, 2018: Ejection fraction 65% to 70%. Concentric left ventricular hypertrophy. Mild to moderate aortic insufficiency. Mild mitral and tricuspid regurgitation. Trace pulmonic insufficiency. 5. CT of the abdomen and pelvis without contrast, June 08, 2018: A. Colonic diverticulosis. No evidence of acute diverticulitis. B. Limited views of the lung bases revealed diffuse ground-glass opacities, likely representing pulmonary edema. 6. Nuclear medicine GI bleed scan, June 09, 2018: No scan evidence of active gastrointestinal bleeding at this time. 7. CT of the brain without contrast, June 13, 2018: On my review, there is no evidence of recent large territorial ischemia, hemorrhage, mass, or mass effect. There is diffuse cerebral atrophy, more than expected for the patient's age. There is compensatory ventriculomegaly. There are findings compatible with moderate to severe chronic small-vessel ischemic disease. ASSESSMENT AND PLAN: Ms. Garcia is an 82-year-old woman with vascular risk factors with subacute left arm weakness and numbness of the left hand. Her neurological examination is significant for mild left hemiparesis, with the arm being more affected than the leg, dysmetria with ltzhwy-lahi-mkrgps movements of the left arm, and mild dysarthria. The patient's laboratory data and other diagnostic studies have been reviewed and are documented above. RECOMMENDATIONS: As follows: 1. A lipid panel and hemoglobin A1c will be ordered. 2. An MRI of the brain without contrast will be ordered. 3. Bilateral carotid artery ultrasound with Doppler will be ordered. 4. No antiplatelet or anticoagulant medication at present due to concern for a chronic GI bleed. 5. Ms. Garcia's blood pressure should be gradually normalized. Her goal blood pressure is less than 130/70 mmHg. Continue with current medicines. Monitor vital signs per unit protocol. 6. Follow up the results of the lipid panel. The patient's goal total cholesterol is less than 200 with a LDL of less than 70. Continue the patient's home medication in the interim. 7. Follow up the results of the hemoglobin A1c. The patient's goal hemoglobin A1c is less than 7.0. 8. A physical therapy evaluation has been ordered. A speech therapy evaluation will be ordered as well. 9. GI prophylaxis with pantoprazole. DVT prophylaxis with MARIANA hose and SCDs. 10. An ammonia level and RPR will be ordered to complete a dementia evaluation. An MRI of the brain is ordered as above. 11. Defer treatment of the remaining medical comorbidities to the primary and other services following the patient. Thank you for this consultation. I will continue to follow the patient while she remains in the hospital. TIME SPENT: 70 minutes. Job#: [id number] DR FRAZIER
[2018-06-15] VITALS (8 sets, daily range): BP systolic 115–143; BP diastolic 56–64
[2018-06-15 05:56] LABS: BASOPHILS % 0.3 % (0.0-1.0); EOSINOPHILS # (AUTO) 0.2 (0.0-0.4); EOSINOPHILS % 1.9 % (0.0-6.0); HEMATOCRIT 25.5 % (34.2-44.1); HEMOGLOBIN 8.3 g/dL (12.0-16.0); LYMPHOCYTES # (AUTO) 1.5 (1.0-3.2); LYMPHOCYTES % 13.4 % (18.0-39.1); MEAN CORPUSCULAR HEMOGLOBIN 31.7 pg (28-32); MEAN CORPUSCULAR HGB CONC 32.5 g/dL (31-35); MEAN CORPUSCULAR VOLUME 97.3 fL (81-99); MONOCYTES # (AUTO) 3.3 (0.2-0.8); MONOCYTES % 29.8 % (4.4-11.3); NEUTROPHILS # (AUTO) 5.4 (2.1-6.9); NEUTROPHILS % 49.8 % (38.7-80.0); PLATELET COUNT 203 x10e3/uL (140-360); RED BLOOD COUNT 2.62 x10e6/uL (3.6-5.1); RED CELL DISTRIBUTION WIDTH 16.8 % (11.7-14.4)
[2018-06-15 06:12] LABS: ALBUMIN 2.3 g/dL (3.5-5.0); ALBUMIN/GLOBULIN RATIO 0.7 (0.8-2.0); ANION GAP 12.8 mmol/L (8-16); CALCIUM 8.2 mg/dL (8.4-10.2); CREATININE, SERUM 1.03 mg/dL (0.57-1.11); POTASSIUM 3.8 mmol/L (3.5-5.1)
[2018-06-15] MEDS: LEVOTHYROXINE SODIUM 50 MCG TAB PO SCH (06:17)
[2018-06-15 07:12] LABS: HYPOCHROMASIA SLIGHT; LYMPHOCYTES % (MANUAL) 14 % (19-48); METAMYELOCYTES % (MANUAL) 3 % (0-0); MONOCYTES % (MANUAL) 22 % (3.4-9.0); MYELOCYTES % (MANUAL) 1 % (0-0); NEUTROPHILS % (MANUAL) 60 % (40-74); PLATELET ESTIMATE ADEQUATE; PLATELET MORPHOLOGY COMMENT FEW LARGE; RBC MORPHOLOGY COMMENT NORMAL
[2018-06-15] MEDS: METRONIDAZOLE 500MG/NS 100ML 100 ML IV SCH ×3 (08:36→22:36)
[2018-06-15] MEDS: FUROSEMIDE 40 MG TAB PO SCH (08:36)
[2018-06-15] MEDS: PANTOPRAZOLE 40 MG 10ML VIAL IV SCH (08:36)
[2018-06-15] MEDS: POTASSIUM CHLORIDE 20 MEQ TAB CR PO SCH (08:36)
[2018-06-15] MEDS: AMLODIPINE BESYLATE 10 MG TAB PO SCH (08:36)
[2018-06-15] MEDS: LOSARTAN POTASSIUM 100 MG TAB PO SCH (08:36)
[2018-06-15] MEDS: PREDNISONE 10 MG TAB PO SCH (08:36)
[2018-06-15] MEDS: FERROUS SULFATE 325 MG TAB PO SCH ×3 (10:21→21:08)
[2018-06-15] MEDS: FOLIC ACID 1 MG TAB PO SCH (10:21)
--- NOTE | 2018-06-15 11:00 | Diagnostic Imaging Report ---
EXAMINATION: MRI of the brain without contrast. HISTORY: Worsening weakness for the last 3 weeks. Severe thrombocytopenia, HLD, hypertension, dementia COMPARISON: Head CT on 06/13/2018 TECHNIQUE: Sagittal T2; axial DWI, T2, FLAIR, T1-IR, T2 gradient echo; coronal FLAIR. IMAGE QUALITY: Motion artifact limits evaluation of some of the sequences.. FINDINGS: Parenchyma: 1. Approximately 6 mm linear FLAIR hyperintense and restricted diffusion focus in the right cerebellum, consistent with acute ischemic infarct. 2. Again seen severe confluent supratentorial white matter chronic microvascular ischemic changes. 3. No mass, hemorrhage, acute or chronic infarcts. Skull: Unremarkable. Vessels: Expected flow voids present in the major arteries and dural sinuses. Extra-axial spaces: No abnormal signal intensity or mass effect. Brain volume: Moderate generalized brain volume loss with minimal bilateral medial temporal predominance. Ventricles: Mild ventriculomegaly, that is slightly out of proportion to the size of the cortical sulci, thinning and upward displacement of the corpus callosum, with relative partial effacement of the vertex region sulci. Some degree of communicating normal pressure hydrocephalus cannot be excluded in the appropriate clinical setting. Foramen magnum: Unremarkable. Sella: Unremarkable. Paranasal / mastoid sinuses: No significant inflammatory disease. IMPRESSION: 1. 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 2. Persistent severe chronic white matter microvascular ischemic changes. 3. Unchanged ventriculomegaly, clinical correlation to evaluate for communicating normal pressure hydrocephalus is advised. Signed by: Dr. Nohelia Ayers M.D. on 06/15/2018 10:09 AM
[2018-06-15] MEDS: ATORVASTATIN 40 MG TAB PO SCH (21:08)
[2018-06-15] MEDS: ZOLPIDEM TARTRATE 5 MG TAB PO PRN (21:08)
[2018-06-15] MEDS ORDERED: METRONIDAZOLE 500MG/NS 100ML 100 ML IV SCH (22:00)
[2018-06-16] VITALS: BP 157/65
[2018-06-16 04:00] VITALS: BP 138/60
[2018-06-16] MEDS: METRONIDAZOLE 500MG/NS 100ML 100 ML IV SCH (05:15)
[2018-06-16] MEDS: LEVOTHYROXINE SODIUM 50 MCG TAB PO SCH (05:15)
[2018-06-16 08:50] VITALS: BP 138/60
[2018-06-16] MEDS: PANTOPRAZOLE 40 MG 10ML VIAL IV SCH (08:54)
[2018-06-16] MEDS: AMLODIPINE BESYLATE 10 MG TAB PO SCH (08:55)
[2018-06-16] MEDS: LOSARTAN POTASSIUM 100 MG TAB PO SCH (08:55)
[2018-06-16] MEDS: FERROUS SULFATE 325 MG TAB PO SCH (08:55)
[2018-06-16] MEDS: FOLIC ACID 1 MG TAB PO SCH (08:55)
[2018-06-16] MEDS: POTASSIUM CHLORIDE 20 MEQ TAB CR PO SCH (08:55)
[2018-06-16] MEDS: FUROSEMIDE 40 MG TAB PO SCH (08:55)
[2018-06-16] MEDS ORDERED: PREDNISONE 5 MG TAB PO SCH (09:00)
[2018-06-16 09:01] VITALS: BP 121/56
[2018-06-16 09:35] LABS: BASOPHILS % 0.2 % (0.0-1.0); EOSINOPHILS # (AUTO) 0.2 (0.0-0.4); EOSINOPHILS % 1.9 % (0.0-6.0); HEMATOCRIT 27.3 % (34.2-44.1); HEMOGLOBIN 8.8 g/dL (12.0-16.0); LYMPHOCYTES # (AUTO) 1.4 (1.0-3.2); MEAN CORPUSCULAR HEMOGLOBIN 31.4 pg (28-32); MEAN CORPUSCULAR HGB CONC 32.2 g/dL (31-35); MEAN CORPUSCULAR VOLUME 97.5 fL (81-99); MONOCYTES # (AUTO) 3.3 (0.2-0.8); MONOCYTES % 28.4 % (4.4-11.3); NEUTROPHILS # (AUTO) 6.2 (2.1-6.9); NEUTROPHILS % 53.9 % (38.7-80.0); PLATELET COUNT 216 x10e3/uL (140-360); RED CELL DISTRIBUTION WIDTH 16.5 % (11.7-14.4)
[2018-06-16 10:42] LABS: EOSINOPHILS % (MANUAL) 2 % (0-7); LYMPHOCYTES % (MANUAL) 11 % (19-48); MONOCYTES % (MANUAL) 23 % (3.4-9.0); MYELOCYTES % (MANUAL) 3 % (0-0); NEUTROPHILS % (MANUAL) 61 % (40-74)
[2018-06-16 10:43] LABS: HYPOCHROMASIA SLIGHT; RBC MORPHOLOGY COMMENT NORMAL
[2018-06-16 10:44] LABS: ANISOCYTOSIS SLIGHT; PLATELET ESTIMATE ADEQUATE; PLATELET MORPHOLOGY COMMENT FEW LARGE; POIKILOCYTOSIS SLIGHT
[2018-06-16 12:00] VITALS: BP 122/61
[2018-06-16 16:00] VITALS: BP 103/53
[2018-06-17] MEDS ORDERED: ASPIRIN 81 MG CHEW TAB PO SCH (09:00)
== END 2018-06-16 17:13 | DRG 280 ==
LOC: ER 10:53 → ERHOLD 15:24 → IMCU 21:24 → MED/SURG3 06-09 18:14
PROVIDERS: ADMIT Internal Medicine; ATTEND Internal Medicine
DX: I11.0 Hypertensive heart disease with heart failure (principal); I46.2 Cardiac arrest due to underlying cardiac condition; I21.4 Non-ST elevation (NSTEMI) myocardial infarction; I63.9 Cerebral infarction, unspecified; K92.2 Gastrointestinal hemorrhage, unspecified; D69.3 Immune thrombocytopenic purpura; G81.94 Hemiplegia, unspecified affecting left nondominant side; I50.9 Heart failure, unspecified; F03.90 Unspecified dementia, unspecified severity, without behavioral disturbance, psychotic disturbance, mood disturbance, and anxiety; E87.6 Hypokalemia; D64.9 Anemia, unspecified; E78.5 Hyperlipidemia, unspecified; Z87.891 Personal history of nicotine dependence; K57.90 Diverticulosis of intestine, part unspecified, without perforation or abscess without bleeding; E03.9 Hypothyroidism, unspecified; D69.6 Thrombocytopenia, unspecified; I50.33 Acute on chronic diastolic (congestive) heart failure; D72.829 Elevated white blood cell count, unspecified; I35.0 Nonrheumatic aortic (valve) stenosis
CPT/HCPCS: 36415; 51700; 70450; 70551; 71045; 74176; 78278; 80048; 80053; 80061; 81001; 82140; 82150; 82270; 82550; 82553; 82607; 82746; 82948; 83036; 83605; 83690; 83735; 83880; 84443; 84484; 85014; 85025; 85610; 85730; 86592; 86850; 86900; 86920; 87040; 87086; 87493; 92523; 93005; 93306; 93880; 99284; A9512; J0692; J1940; J1956; J3480; J7040; J7050; J7512